=== PATIENT | male | born 1955 | race Caucasian/White ===

== ENCOUNTER → 2021-11-12 | Outpatient (CLI) | payer MEDICARE, OTHER ==
[2021-11-12 10:51] LABS: Partial Thromboplastin Time 24.5 sec (22.0-30.0); Prothrombin Time 10.5 sec (9.0-12.0)
[2021-11-12 18:52] LABS: HCT 42.5 % (39.6-50.0); HGB 13.3 g/dL (13.0-17.0); MCHC 31.3 g/dL (32.0-37.0); MCV 92.6 fL (80.0-97.0); Mean Platelet Volume 9.6 fL (9.5-12.2); NRBC Per 100 WBC 0 /100 WBCS (0.0-0.0); Platelet Count 273 X 10*3/uL (140-440); RBC 4.59 X 10*6/uL (4.40-5.60); WBC 7.07 X 10*3/uL (4.50-10.00)
[2021-11-13 00:30] LABS: ALT 21 U/L (10-49); AST 20 U/L (14-35); African American GFR (CKD) 105.8 (60.0-200.0); Albumin 4.3 g/dL (3.8-4.9); Albumin/Globulin Ratio 1.66 (1.60-3.17); Alkaline Phosphatase 81 U/L (41-126); Blood Urea Nitrogen 17.3 mg/dL (9.0-27.0); Calcium 9.4 mg/dL (8.7-10.3); Carbon Dioxide 24.7 mmol/L (20.0-27.5); Chloride 105 mmol/L (96-109); Chol/HDL Ratio 2.52 Ratio; Globulin 2.6 g/dL (1.6-3.3); Glucose 114 mg/dL (70-110); LDL Cholesterol,Calculated 46.8 mg/dL (0.0-131.0); Non-African American GFR(CKD) 91.2 (60.0-200.0); Potassium 4.5 mmol/L (3.5-5.5); Sodium 141 mmol/L (135-145); Total Protein 6.8 g/dL (6.2-8.2); VLDL Calculation 17.74 mg/dL (5.00-40.00)
[2021-11-13 13:31] LABS: Hepatitis A Antibody IgM Nonreactive (Nonreactive); Hepatitis B Core IgM Nonreactive (Nonreactive); Hepatitis B Surface Antigen Nonreactive (Nonreactive); Hepatitis C IgG Antibody Nonreactive (Nonreactive)
== END | disposition home or self-care (01) ==
LOC: LABWHC1 09:24
PROVIDERS: ATTEND Thoracic Surgery (Cardiothoracic Vascular Surgery)
DX: I25.10 Atherosclerotic heart disease of native coronary artery without angina pectoris (principal)
CPT/HCPCS: 36415; 80053; 80061; 80074; 85027; 85610; 85730; 93005

== ENCOUNTER 2021-11-18 05:38 | Inpatient (IN) | payer MEDICARE, OTHER ==
--- NOTE | 2021-11-12 10:30 | P.PN ---
Progress Note - Text Progress Note Date: 11/12/21 5 meter walk test completed without difficulty: #1 3.37 seconds #2 2.95 seconds #3 2.78 seconds Also, STS risk was calculated and discussed with the patient and his .
[~2021-11-18 05:38] MED LIST: ALBUMIN HUMAN 25% 50 ML IV ONE; ALBUMIN HUMAN 5% 500 ML IVPB ONE; ASPIRIN 325 MG TAB PO ONE; ATORVASTATIN 10 MG TAB PO ONE; CALCIUM CHLORIDE 100 MG/ML 10 ML SYRINGE IV ONE; CARDIOPLEGIC SOLN (K+ 16 MEQ/L 1,000 ML with SODIUM BICARB (1 MEQ/ML) 20 ML, LIDOCAINE ... PERFUSION ONE; CHLORHEXIDINE GLUCONATE 15 ML CUP MUCOUS MEM ONE; CLEVIDIPINE BUTYRATE 25 MG in EMPTY BAG 1 BAG IV ONE; DILTIAZEM 125 MG in SODIUM CHLORIDE 0.9% 100 ML IV ONE; HEPARIN SODIUM 1,000 UN/ML (10ML VL) IV ONE; HEPARIN SODIUM,PORCINE 5,000 UNIT in SODIUM CHLORIDE 0.9% 500 ML 500 ML IV ONE; INSULIN REGULAR 100 UNIT in SODIUM CHLORIDE 0.9% 100 ML IV ONE; LACTATED RINGERS 1,000 ML IV ONE; MAGNESIUM SULFATE 16.24 MEQ in EMPTY SYRINGE 1 SYR IV ONE; MANNITOL 25% 12.5 GM/50 ML VIAL IV ONE; METOPROLOL TARTRATE 12.5 MG TAB PO ONE; NITROGLYCERIN SL TABS 0.4 MG TAB SUBLINGUAL ONE; NITROGLYCERIN-D5W PMX 25 MG/250 ML BTL IV ONE; NITROGLYCERIN-D5W PMX 50 MG in DEXTROSE/WATER 1 250ML.BAG IV ONE; NOREPINEPHRINE 4 MG in SODIUM CHLORIDE 0.9% 250 ML IV ONE; PAPAVERINE 360 MG in SODIUM CHLORIDE 0.9% 90 ML IV ONE; PHENYLEPHRINE 10 MG/ML VIAL IV ONE; PHENYLEPHRINE 40 MG in SODIUM CHLORIDE 0.9% 250 ML IV ONE; PROTAMINE SULFATE 10 MG/ML 25 ML VIAL IV ONE; PROTAMINE SULFATE 250 MG in EMPTY BAG 1 BAG IV ONE; SODIUM BICARB 8.4% 50 ML SYR (1 MEQ/ML) IV ONE; SODIUM CHLORIDE 0.9% 1,000 ML IV ONE; TRANEXAMIC ACID 2,000 MG in SODIUM CHLORIDE 0.9% 80 ML IV ONE; ceFAZolin 1,000 MG in SODIUM CHLORIDE 0.9% IRRIGATIO 1,000 ML IRRIGATION ONE; propofoL 1,000 MG/100 ML VIAL IV ONE
[2021-11-18] MEDS ORDERED: CALCIUM CHLORIDE 100 MG/ML 10 ML SYRINGE ONE (07:44)
[2021-11-18] MEDS ORDERED: PHENYLEPHRINE-0.9% NACL SYG 1,000 MCG/10 ML SYRINGE ONE (07:44)
[2021-11-18] MEDS ORDERED: SODIUM CHLORIDE 0.9% IRRIG 1,000 ML BTL IRRIGATION ONE (07:44)
[2021-11-18] MEDS ORDERED: HEPARIN SODIUM,PORCINE 10,000 UNIT/ML 1 ML VIAL ONE (07:44)
[2021-11-18] MEDS ORDERED: PROPOFOL 10 MG/ML 20 ML VIAL IV ONE (07:44)
[2021-11-18] MEDS ORDERED: GLYCOPYRROLATE 0.2 MG/ML 2 ML VIAL ONE (07:44)
[2021-11-18] MEDS ORDERED: ceFAZolin 1,000 MG VIAL ONE (07:44)
[2021-11-18] MEDS ORDERED: PROTAMINE SULFATE 10 MG/ML 5 ML VIAL IV ONE (07:44)
[2021-11-18] MEDS ORDERED: ALBUMIN HUMAN 5% (25gm) 500 ML VIAL IVPB ONE (07:44)
[2021-11-18] MEDS ORDERED: MIDAZOLAM HCL 10 MG/10 ML VIAL ONE (07:44)
[2021-11-18] MEDS ORDERED: SODIUM CHLORIDE 0.9% 100 ML BAG ONE (07:44)
[2021-11-18] MEDS ORDERED: VECURONIUM 10 MG VIAL IV ONE (07:44)
[2021-11-18] MEDS ORDERED: fentaNYL (PF) 50 MCG/ML 50 ML VIAL ONE (07:44)
--- NOTE | 2021-11-18 10:13 | P.ANPRN ---
Procedure Note - Anesthesia - Invasive Line Right Central Line Time Out Performed: Yes (714) Date of Procedure: 11/18/21 Time of Procedure: 07:15 Location of Patient: PreOp Preparation: Sterile Prep, Sterile Dressing Arterial Line Location: Radial Ultrasound Used: Yes Purpose - Visualization and Identification of Vasculature: Yes Needle Guage: 18g angio Image Stored and Saved: Yes Narrative: Central line placement per sterile protocol utilized. +local +angio +cvp +jwire +uneventful right IJ cordis dilation and insertion. Bled back and flushed. Secured. Sterile protocol at all times.
--- NOTE | 2021-11-18 10:14 | P.ANPRN ---
Procedure Note - Anesthesia - Invasive Line Right [place] Time Out Performed: Yes (714) Date of Procedure: 11/18/21 Time of Procedure: 07:31 Location of Patient: PreOp Preparation: Sterile Prep, Sterile Dressing Arterial Line Location: Radial Ultrasound Used: No Purpose - Visualization and Identification of Vasculature: No Image Stored and Saved: No Narrative: Central line placement per sterile protocol utilized. sterile protocol. right IJ PA catheter floated in sheath in 3 attempts. PA at 52 wedge at 58. W/d and left at 52 cm. pt tolerated procedure well.
[2021-11-18 13:09] LABS: ABG Base Excess 0.4 mmol/L; ABG Glucose Whole Blood 127 mg/dL (75-99); ABG HCO3 25 mmol/L (21-25); ABG Hematocrit 31 % (34.0-46.0); ABG Ionized Calcium 4.6 mg/dL (4.5-5.3); ABG Lactic Acid Whole Blood 1.5 mmol/L (0.5-1.6); ABG Oxygen Saturation 95.9 % (94-97); ABG PCO2 40 mmHg (35-45); ABG PH 7.41 (7.35-7.45); ABG PO2 76 mmHg (83-108); ABG Potassium Whole Blood 3.6 mmol/L (3.4-4.5); ABG Sodium Whole Blood 141 mmol/L (135-146); ABG TCO2 26 mmol/L (19-24)
--- NOTE | 2021-11-18 13:14 | P.OP ---
Date of Procedure: 11/18/21 Preoperative Diagnosis: Coronary artery disease Postoperative Diagnosis: Same Procedure(s) Performed: Off-pump CABG 3 with RAMIREZ to LAD, free DEBI T graft off RAMIREZ to obtuse marginal #2, saphenous vein graft to PDA with endovascular vein harvest and ligation of the left atrial appendage with a 35 mm AtriCure clip. Also anesthesia performed RYLAND pre-and postoperatively. Implants: 35 mm AtriCure clip Anesthesia: GETA Surgeon: Karthik Vasquez Receiving Checker #1: Anthony Licona Receiving Checker #2: En Briscoe Estimated Blood Loss (ml): 500 IV fluids (ml): 2,000 Urine output (ml): 500 Pathology: none sent Condition: stable Disposition: ICU Indications for Procedure: 66-year-old male with known history of coronary artery disease and multiple stents and past. Patient presented with anginal symptomatology. And when cardiac catheterization by Dr. Karthik Nuñez. He was found to have severe three- vessel coronary artery disease with in-stent restenosis of the proximal LAD stent. Coronary bypass grafting was recommended. As the patient lived in [facility], was decided to perform his surgery at [facility] despite his catheterization having been done and essentially [facility]. Elective surgery was scheduled. Operative Findings: LAD, OM 2, PDA were excellent targets. Diagonal branches and high obtuse marginal and distal circumflex branches were all small. There were to acute marginal branches which were also small. Radial arteries were dependent and could not be harvested safely. Bilateral mammary artery harvest was performed and the conduits were excellent. The DEBI was taken free in order to give adequate length to reach the lateral wall. RAMIREZ was used pedicle. Saphenous vein from the left thigh was excellent. RYLAND demonstrated only trivial mitral regurgitation with normal ventricular function. There was no evidence of clot in the ventricle or left atrial appendage. Description of Procedure: Patient was brought to the operating room. He was placed supine on the operating table. Gen. anesthesia was induced. Preoperative lines had been placed in preop holding. The anterior torso and lower extremities were sterilely prepped and draped. The left greater saphenous vein was harvested from knee to groin using endovascular vein harvest technique. Simultaneous midline sternotomy was performed. The left hemisternum was retracted upwards and the left internal mammary artery was harvested on a vascularized pedicle. It was an excellent conduit. The left pleural space was drained with 32-Luxembourger chest tube. The right internal mammary artery was now harvested on a vascularized pedicle. It was also a good conduit. It was divided proximally and distally and the ends of the vessel clipped. The vessel was flushed with heparinized saline and placed in a papaverine bath. Standard sternal retractor was placed. The pericardium was opened in the midline. The heart was exposed pericardial sutures. Patient was systemically heparinized. A CTs were maintained greater than 250 during grafting. We began by jumping the free DEBI off the pedicles RAMIREZ. Bulldog clamps were applied proximally and distally on the RAMIREZ. It was opened longitudinally. Was opened in its midportion just as it entered the pericardial sac. Proximal anastomosis was performed with running 8-0 Prolene suture. Was performed from the side of the RAMIREZ to the proximal end of the DEBI. On completion anastomosis bulldog clamps removed distally. Good flow was noted in each graft. 35mm AtriCure was now applied to the base of the left atrial appendage. Next the mid LAD was stabilized. The stents could be palpated proximally. Vessel was grafted just distal to the end of the stents. Here was a 2-2.5 mm good vessel. It was opened and blood flow control with a 2 mm flow through. End to side anastomosis between the RAMIREZ and the LAD was performed with running 8-0 Prolene suture. Completion anastomosis the flow through was removed effectively probing the proximal distal portion of the anastomosis. Suture was tied with good result and hemostasis inflow was open. Graft was noted to lay well with good length. The ANASTASIA pedicle was tacked surrounding epicardium with 6-0 silk suture. Lateral wall of the heart was exposed. The major marginal branch was the second obtuse marginal. It was a good size vessel. It was opened fairly proximally and blood flow control with a 2 mm flow through. It was a 2 mm vessel. End-to-side anastomosis between the end of the DEBI and the side of the major marginal branch was performed with running 8-0 Prolene suture. On completion anastomosis flow through was removed effectively probing the proximal distal portion anastomosis. Suture was tied with good result and hemostasis. Inflow was open. Good hemostasis was maintained. The ANASTASIA pedicle was tacked surrounding epicardium with 6-0 silk. The heart was lowered into anatomic position and the inferior wall was exposed. Right coronary artery had 2 obtuse marginal branches one of which ran along the anterior surface and the second of which across the obtuse margin and ran along the posterior surface of the right ventricle. Right coronary artery terminated and a large posterior descending branch. This was stabilized. Was opened and blood flow control with a 1.5 mm flow through. It was a 1.75 mm vessel. Was grafted beyond any palpable disease. This was fairly proximally in the PDA. Anastomosis between the saphenous vein and the PDA was performed with running 7-0 Prolene suture. On completion anastomosis the flow through was removed 50 probe the proximal distal portion anastomosis. Suture was tied with good result and hemostasis and good backbleeding was noted into the vein to the first valve. Heart was lowered into anatomic position. The vein was cut to appropriately to reach the ascending aorta. This was just at the level of the first valve. Heartstring device was deployed in the midportion of the ascending aorta. Proximal anastomosis performed with running 5-0 Prolene suture. On completion of the proximal anastomosis heartstring device was removed. Single suture was tied with good result and hemostasis. The graft was de-aired by needle holes and the inflow open. Graft was noted to lay well with good length. Distal anastomoses were checked and 80 noted to be hemostatic. Heparin was reversed with protamine. Good hemostasis was obtained throughout. Chest was irrigated with antibiotic solution. Both pleural spaces of been drained with 32-Luxembourger chest tubes and a 36-Luxembourger chest tube was placed into the mediastinum. Pericardium was tacked closed. Chest was irrigated with antibiotic solution and the sternum closed with 8 sternal wires. Fascia was closed with 0 Ethibond. Subcutaneous and subcuticular layers in the leg and chest were closed with layers of Vicryl suture. Dry sterile dressings were placed and the patient was transferred to the ICU in stable condition.
[2021-11-18] MEDS ORDERED: ALBUMIN HUMAN 5% 250 ML IVPB ONE (13:19)
[2021-11-18] MEDS ORDERED: NITROGLYCERIN-D5W PMX 50 MG in DEXTROSE/WATER 1 250ML.BAG IV SCH (13:20)
[2021-11-18] MEDS ORDERED: Phosphorus Replacement Protoco 1 EACH MISC MISCELLANE PRN (13:20)
[2021-11-18] MEDS ORDERED: IPRATROPIUM-ALBUTEROL 3 ML NEB INHALATION PRN (13:20)
[2021-11-18] MEDS ORDERED: BENZOCAINE/MENTHOL LOZENG 1 EACH LOZENGE MUCOUS MEM PRN (13:20)
[2021-11-18] MEDS ORDERED: hydrALAZINE HCL 20 MG/ML 1 ML VIAL IVP PRN (13:20)
[2021-11-18] MEDS ORDERED: ONDANSETRON 4 MG/2 ML VIAL IVP PRN (13:20)
[2021-11-18] MEDS ORDERED: AMIODARONE 450 MG in DEXTROSE 5% IN WATER 250 ML IV PRN ×2 (13:20)
[2021-11-18] MEDS ORDERED: Magnesium Replacement Protocol 1 EACH MISC MISCELLANE PRN (13:20)
[2021-11-18] MEDS ORDERED: CALCIUM GLUCONATE IN NACL 2 GM in SALINE 1 100ML.BAG IVPB PRN (13:20)
[2021-11-18] MEDS ORDERED: Potassium Replacement Protocol 1 EACH MISC MISCELLANE PRN (13:20)
[2021-11-18] MEDS ORDERED: DEXTROSE 5% IN WATER 100 ML with AMIODARONE 150 MG IV PRN (13:20)
[2021-11-18] MEDS ORDERED: DEXMEDETOMIDINE/0.9% NACL(PMX) 400 MCG in EMPTY BAG 1 BAG IV SCH (13:20)
[2021-11-18] MEDS ORDERED: METOCLOPRAMIDE 5 MG/ML 2 ML VIAL IVP PRN (13:20)
[2021-11-18 13:31] LABS: Glucose,Whole Blood 139 mg/dL (75-99)
[2021-11-18 13:40] LABS: Basophils % (A) 0 %; Eosinophils # (A) 0.2 k/uL (0-0.7); Eosinophils % (A) 2 %; HCT 30.4 % (39.0-53.0); HGB 10.4 gm/dL (13.0-17.5); Lymphocytes # (A) 1.1 k/uL (1.0-4.8); Lymphocytes % (A) 12 %; MCHC 34.3 g/dL (31.0-37.0); MCV 90.5 fL (80.0-100.0); Mean Platelet Volume 7.8; Monocytes # (A) 0.2 k/uL (0-1.0); Monocytes % (A) 2 %; Neutrophils # (A) 7.9 k/uL (1.3-7.7); Neutrophils % (A) 83 %; Platelet Count 169 k/uL (150-450); RBC 3.36 m/uL (4.30-5.90); RDW 13.2 % (11.5-15.5); WBC 9.5 k/uL (3.8-10.6)
[2021-11-18 13:48] LABS: Ionized Calcium 5.5 mg/dL (4.5-5.3)
--- NOTE | 2021-11-18 13:57 | XR ---
EXAMINATION TYPE: XR chest 1V portable DATE OF EXAM: 11/18/2021 CLINICAL HISTORY: Postoperative CABG. TECHNIQUE: Single AP portable supine view of the chest is obtained. COMPARISON: None FINDINGS: There is Endotracheal tube terminating at superior aortic knob level approximately 4 cm ab ove the charles. There is orogastric tube extending just below diaphragm. There is right internal jugu lar [place] catheter terminating at level of the proximal right pulmonary artery. Overlying sternal wires and mediastinal clips along with left atrial appendage clip are present. Bilateral chest tubes and mediastinal drainage catheter are present. Patchy left basilar opacity consistent with atelectasis. Mild interstitial prominence or edema. No pn eumothorax seen bilaterally. Mild cardiomegaly. Osseous structures are intact. IMPRESSION: 1. Tubes and lines are satisfactory in position. 2. Mild central vascular congestion with patchy left basilar atelectasis and probable small left pleu ral fluid collection. No pneumothorax with bilateral chest tubes in place.
[2021-11-18] MEDS ORDERED: INSULIN REGULAR 100 UNIT in SODIUM CHLORIDE 0.9% 100 ML IV SCH (14:00)
[2021-11-18] MEDS: LACTATED RINGERS 1,000 ML IV SCH (14:11)
[2021-11-18 14:17] LABS: ALT 22 U/L (4-49); AST 25 U/L (17-59); African American GFR (CKD) >90 (>60 ml/min/1.73 sqM); Albumin 3.4 g/dL (3.5-5.0); Alkaline Phosphatase 55 U/L (38-126); Anion Gap 3 mmol/L; Blood Urea Nitrogen 16 mg/dL (9-20); Calcium 8.8 mg/dL (8.4-10.2); Carbon Dioxide 25 mmol/L (22-30); Chloride 109 mmol/L (98-107); Glucose 130 mg/dL (74-99); Magnesium 1.5 mg/dL (1.6-2.3); Non-African American GFR(CKD) >90 (>60 ml/min/1.73 sqM); Sodium 137 mmol/L (137-145); Total Bilirubin 0.9 mg/dL (0.2-1.3); Total Protein 5.6 g/dL (6.3-8.2)
[2021-11-18] MEDS: CLEVIDIPINE BUTYRATE 25 MG in EMPTY BAG 1 BAG IV SCH ×2 (14:33→20:01)
[2021-11-18 14:34] LABS: INR 1.1 (<1.2); Partial Thromboplastin Time 25.5 sec (22.0-30.0); Prothrombin Time 11.8 sec (9.0-12.0)
[2021-11-18] MEDS: MAGNESIUM SULFATE-D5W PMX 1 GM in DEXTROSE/WATER 1 100ML.BAG IVPB SCH ×2 (14:43→16:13)
--- NOTE | 2021-11-18 14:47 | P.CNPUL ---
History of Present Illness Consult date: 11/18/21 Requesting physician: Karthik Vasquez Reason for consult: other (Status post CABG, patient is on mechanical ventilation) Chief complaint: Status post CABG History of present illness: This is a 66-year-old white male with history of coronary artery disease, multiple stents in the past, patient had a recent cardiac catheterization, this was done by Dr. Karthik Nuñez, and he was found to have three-vessel coronary artery disease, with in-stent restenosis of the proximal LAD stent. Patient was advi sed to undergo CABG, considering the patient lives in [facility], he was referred to Dr. Vasquez, and today he underwent elective off-pump CABG 3 with RAMIREZ to LAD free DEBI T graft off RAMIREZ to obtuse marginal #2, saphenous vein graft to PDA. Postoperatively patient was admitted to the ICU on mechanical ventilation, and I was asked to see him on consultation. Patient is now on assist control mode of mechanical ventilation, rate is set at 12 tidal volume is 500 FiO2 was 100% and I cut it down to 40%, and PEEP at 5. ABG showed a pO2 of more than 400 pCO2 of 49 pH of 7.34 hence his rate was increased to 14 FiO2 down to 40% and no other changes made on his ventilator settings. Patient is sedated, on clevidipine 2 mg/h, on propofol 35 mcg/kg/m on insulin drip at 1 unit per hour nitroglycerin drip. Patient is hemodynamically stable his cardiac index is 3.4. Chest x-ray showed no evidence of acute abnormality endotracheal tube, chest tubes, mediastinal tube are all in proper position. Review of Systems ROS unobtainable: due to endotracheal tube Past Medical History Past Medical History: GERD/Reflux, Hyperlipidemia, Hypertension Additional Past Medical History / Comment(s): RLS, ?sleep apnea-attempted home sleep study History of Any Multi-Drug Resistant Organisms: None Reported Past Surgical History: Heart Catheterization, Heart Catheterization With Stent Additional Past Surgical History / Comment(s): 5 stents total, colonoscopy Past Anesthesia/Blood Transfusion Reactions: No Reported Reaction Date of Last Stent Placement:: 2014 Smoking Status: Former smoker - Past Family History Mother Family Medical History: No Reported History Medications and Allergies Home Medications Medication Instructions Recorded Confirmed Type Aspirin 81 mg PO DAILY 11/12/21 11/18/21 History Clopidogrel [Plavix] 75 mg PO DAILY 11/12/21 11/18/21 History Isosorbide Mononitrate ER [Imdur] 30 mg PO DAILY 11/12/21 11/18/21 History Omeprazole [PriLOSEC] 20 mg PO AC-BRKFST 11/12/21 11/18/21 History Pramipexole Di-HCl [Mirapex] 1 mg PO HS 11/12/21 11/18/21 History Rosuvastatin Calcium [Crestor] 40 mg PO HS 11/12/21 11/18/21 History Ubidecarenone [Co Q-10] 100 mg PO HS 11/12/21 11/18/21 History atenoloL [Tenormin] 50 mg PO DAILY 11/12/21 11/18/21 History Allergies Allergy/AdvReac Type Severity Reaction Status Date / Time No Known Allergies Allergy Verified 11/18/21 06:00 Physical Exam Vitals: Vital Signs Temp Pulse Resp BP BP Pulse Ox 11/18/21 06:08 125/74 11/18/21 06:05 97.5 F L 57 L 18 119/68 96 Intake and Output 11/17/21 11/18/21 11/18/21 22:59 06:59 14:59 Intake Total 100 53 Output Total 1175 Balance 100 -1122 Intake: IV 100 53 Output: Urine 575 Estimated Blood Loss 600 Other: Weight 86.1 kg Physical Exam: Revealed a 66-year-old white male intubated mechanically ventilated in no distress. Head: Atraumatic, normocephalic. HEENT:[Neck is supple.] [No neck masses.] [No thyromegaly.] [No JVD.] PERRLA, EOMI, nonicteric, endotracheal tube is intact. Chest: [Symmetrical chest expansion, no crackles or rhonchi or wheezes, chest tubes are noted bilaterally Cardiac Exam: [Normal S1 and S2, no S3 gallop, no murmur. Positive pericardial rub.] Abdomen: [Soft, nontender, no megaly, no rebound, no guarding, normal bowel sounds.] Extremities: [No clubbing, no edema, no cyanosis. Good pulses bilaterally.] Neurological Exam: Cannot assess, patient is sedated, Psychiatric: Could not assess. Musculoskeletal good tone, no deformities. Skin: No rashes. Results - Laboratory Findings CBC and BMP: 11/18/21 13:30 11/18/21 13:30 ABG ABG pH 7.41 (7.35-7.45) 11/18/21 08:31 ABG pCO2 40 mmHg (35-45) 11/18/21 08:31 ABG pO2 76 mmHg (83-108) L 11/18/21 08:31 ABG O2 Saturation 95.9 % (94-97) 11/18/21 08:31 Abnormal lab findings: Abnormal Labs 11/12/21 11/18/21 11/18/21 09:44 08:31 13:29 RBC Hgb Hct Neutrophils # ABG pO2 76 L ABG Total CO2 26 H ABG Hematocrit 31 L ABG Glucose 127 H Hemoglobin 10.0 L Chloride Creatinine Glucose POC Glucose (mg/dL) 139 H Ionized Calcium Marshall Magnesium Total Protein Albumin Arterial Blood Glucose 127 H Crossmatch See Detail 11/18/21 11/18/21 13:30 13:30 RBC 3.36 L Hgb 10.4 L Hct 30.4 L Neutrophils # 7.9 H ABG pO2 ABG Total CO2 ABG Hematocrit ABG Glucose Hemoglobin Chloride 109 H Creatinine 0.63 L Glucose 130 H POC Glucose (mg/dL) Ionized Calcium Marshall 5.5 H Magnesium 1.5 L Total Protein 5.6 L Albumin 3.4 L Arterial Blood Glucose Crossmatch - Diagnostic Findings Chest x-ray: image reviewed (As noted in HPI.) Assessment and Plan Assessment: Impression: Off-pump CABG 3 with RAMIREZ to LAD, free DEBI T graft off RAMIREZ to obtuse marginal #2, saphenous vein graft to PDA with endovascular vein harvest and ligation of the left atrial appendage with a 35 mm AtriCure clip. Postoperative day #0 Benign essential hypertension Dyslipidemia Ex-smoker Recommendation: Continue present ventilatory support Ventilator settings were adjusted accordingly Hemodynamic support if necessary. GI and DVT prophylaxis. Will likely consider weaning and extubation in the next couple of hours. Incentive spirometry post extubation. Early ambulation post extubation. We'll continue to follow. Time with Patient: Greater than 30
[2021-11-18 15:18] LABS: Glucose,Whole Blood 159 mg/dL (75-99)
--- NOTE | 2021-11-18 15:33 | P.CONS ---
History of Present Illness - Reason for Consult Consult date: 11/18/21 pre-diabetes Requesting physician: Karthik Vasquez - Chief Complaint chest pain - History of Present Illness Patient is a 66-year-old male with coronary artery disease status post multiple stenting, GERD, HTN, and HLD who presented for elective off-pump CABG 3. He was admitted to the ICU intubated and sedated. Patient seen and examined at bedside. He is currently intubated and sedated. All information is gathered from thorough record review including preoperative evaluation for bypass surgery. Patient is currently on vent setting . He curretnly has propofol, nitro, clevidipine running. Unable to obtain review of systems as patient is sedated on vent General: non toxic, no distress, appears at stated age Derm: warm, dry Head: atraumatic, normocephalic, symmetric Eyes: EOMI, no lid lag, anicteric sclera, pupils equal round reactive to light ENT: Nose and ears atraumatic, no thrush, no pharyngeal erythema Neck: No thyromegaly, no cervical lymphadenopathy, trachea midline, supple Mouth: no lip lesion, mucus membranes moist Cardiovascular: S1S2 irreg, no murmur, + posterior tibial pulse bilateral, no edema, capillary refill less than 2 seconds Lungs: Decreased bs bilateral, no ronchi, no rales, no wheeze, no accessory muscle use Abdominal: soft, nontender to palpation, no guarding, no appreciable organomegaly, normal bowel sounds Ext: no gross muscle atrophy, no contracttures Neuro: Breathing over the vent, PERRL, no tremors, no fasiculations Psych: sedated and unresponsive Assessment/plan. Patient is a 66-year-old male status post triple vessel bypass therapy -He is currently receiving clefted pain, LR, nitro drip per primary team -He is intubated and sedated with the use of propofol. Acute blood loss anemia -Anticipated outcome of surgery -No indications for transfusion at this time -Follow CBC -Check iron studies Prediabetes - Outpatient A1C pre op was 6 - will need glucometer on discharge - will need repeat A1C in 3 months. Hypomagnesemia -Replace and recheck Hypertension -Management per primary team -Follow blood pressures closely -Was on atenolol prior to surgery Dyslipidemia - Crestor Thank you for allowing us to participate in the care of this pleasant patient. Do not hesitate to contact us with questions. Someone can be reached from the [facility] hospitalist group all hours of the day at [phone] or via [employer]. Past Medical History Past Medical History: GERD/Reflux, Hyperlipidemia, Hypertension Additional Past Medical History / Comment(s): RLS, ?sleep apnea-attempted home sleep study History of Any Multi-Drug Resistant Organisms: None Reported Past Surgical History: Heart Catheterization, Heart Catheterization With Stent Additional Past Surgical History / Comment(s): 5 stents total, colonoscopy Past Anesthesia/Blood Transfusion Reactions: No Reported Reaction Date of Last Stent Placement:: 2014 Smoking Status: Former smoker - Past Family History Mother Family Medical History: No Reported History Medications and Allergies Home Medications Medication Instructions Recorded Confirmed Type Aspirin 81 mg PO DAILY 11/12/21 11/18/21 History Clopidogrel [Plavix] 75 mg PO DAILY 11/12/21 11/18/21 History Isosorbide Mononitrate ER [Imdur] 30 mg PO DAILY 11/12/21 11/18/21 History Omeprazole [PriLOSEC] 20 mg PO AC-BRKFST 11/12/21 11/18/21 History Pramipexole Di-HCl [Mirapex] 1 mg PO HS 11/12/21 11/18/21 History Rosuvastatin Calcium [Crestor] 40 mg PO HS 11/12/21 11/18/21 History Ubidecarenone [Co Q-10] 100 mg PO HS 11/12/21 11/18/21 History atenoloL [Tenormin] 50 mg PO DAILY 11/12/21 11/18/21 History Allergies Allergy/AdvReac Type Severity Reaction Status Date / Time No Known Allergies Allergy Verified 11/18/21 06:00 Physical Exam Osteopathic Statement: *. No significant issues noted on an osteopathic structural exam other than those noted in the History and Physical/Consult. Vitals: Vital Signs Temp Pulse Resp BP BP Pulse Ox 11/18/21 06:08 125/74 11/18/21 06:05 97.5 F L 57 L 18 119/68 96 Intake and Output 11/18/21 11/18/21 11/18/21 06:59 14:59 22:59 Intake Total 100 53 Output Total 1175 Balance 100 -1122 Intake: IV 100 53 Output: Urine 575 Estimated Blood Loss 600 Other: Weight 86.1 kg Results CBC & Chem 7: 11/18/21 13:30 11/18/21 13:30 Labs: Abnormal Lab Results - Last 24 Hours (Table) 11/12/21 11/18/21 11/18/21 Range/Units 09:44 08:31 13:29 RBC (4.30-5.90) m/uL Hgb (13.0-17.5) gm/dL Hct (39.0-53.0) % Neutrophils # (1.3-7.7) k/uL ABG pO2 76 L (83-108) mmHg ABG Total CO2 26 H (19-24) mmol/L ABG Hematocrit 31 L (34.0-46.0) % ABG Glucose 127 H (75-99) mg/dL Hemoglobin 10.0 L (13.0-17.5) gm/dL Chloride (98-107) mmol/L Creatinine (0.66-1.25) mg/dL Glucose (74-99) mg/dL POC Glucose (mg/dL) 139 H (75-99) mg/dL Ionized Calcium Marshall (4.5-5.3) mg/dL Magnesium (1.6-2.3) mg/dL Total Protein (6.3-8.2) g/dL Albumin (3.5-5.0) g/dL Arterial Blood Glucose 127 H (75-99) mg/dL Crossmatch See Detail 11/18/21 11/18/21 11/18/21 Range/Units 13:30 13:30 15:17 RBC 3.36 L (4.30-5.90) m/uL Hgb 10.4 L (13.0-17.5) gm/dL Hct 30.4 L (39.0-53.0) % Neutrophils # 7.9 H (1.3-7.7) k/uL ABG pO2 (83-108) mmHg ABG Total CO2 (19-24) mmol/L ABG Hematocrit (34.0-46.0) % ABG Glucose (75-99) mg/dL Hemoglobin (13.0-17.5) gm/dL Chloride 109 H (98-107) mmol/L Creatinine 0.63 L (0.66-1.25) mg/dL Glucose 130 H (74-99) mg/dL POC Glucose (mg/dL) 159 H (75-99) mg/dL Ionized Calcium Marshall 5.5 H (4.5-5.3) mg/dL Magnesium 1.5 L (1.6-2.3) mg/dL Total Protein 5.6 L (6.3-8.2) g/dL Albumin 3.4 L (3.5-5.0) g/dL Arterial Blood Glucose (75-99) mg/dL Crossmatch
[2021-11-18] MEDS ORDERED: IPRATROPIUM-ALBUTEROL 3 ML NEB INHALATION SCH (16:00)
[2021-11-18] MEDS: HEPARIN SODIUM,PORCINE/PF 5,000 UNIT/0.5 ML SYRINGE SQ SCH ×2 (16:13→22:55)
[2021-11-18 16:21] LABS: Glucose,Whole Blood 174 mg/dL (75-99)
[2021-11-18 16:28] LABS: Basophils # (A) 0.1 k/uL (0-0.2); Basophils % (A) 0 %; Eosinophils % (A) 0 %; HCT 33.4 % (39.0-53.0); HGB 11.3 gm/dL (13.0-17.5); Lymphocytes # (A) 1.4 k/uL (1.0-4.8); Lymphocytes % (A) 12 %; MCH 30.7 pg (25.0-35.0); MCHC 33.9 g/dL (31.0-37.0); MCV 90.4 fL (80.0-100.0); Monocytes # (A) 0.4 k/uL (0-1.0); Monocytes % (A) 3 %; Neutrophils # (A) 9.5 k/uL (1.3-7.7); Neutrophils % (A) 82 %; Platelet Count 208 k/uL (150-450); RDW 13.1 % (11.5-15.5); WBC 11.5 k/uL (3.8-10.6)
[2021-11-18 16:50] LABS: ABG Base Excess -1.2 mmol/L; ABG HCO3 24 mmol/L (21-25); ABG Oxygen Saturation 97.3 % (94-97); ABG PCO2 43 mmHg (35-45); ABG PH 7.36 (7.35-7.45); ABG PO2 91 mmHg (83-108); ABG TCO2 26 mmol/L (19-24)
[2021-11-18 16:52] LABS: Allen Test Performed? yes
[2021-11-18] MEDS: ACETAMINOPHEN IV (For NPO) 1,000 MG in EMPTY BAG 1 BAG IVPB SCH ×2 (17:02→22:56)
[2021-11-18] MEDS: KETOROLAC 15 MG/ML 1 ML VIAL IVP SCH ×2 (17:05→23:04)
[2021-11-18 17:09] LABS: Glucose,Whole Blood 182 mg/dL (75-99)
[2021-11-18 18:05] LABS: Glucose,Whole Blood 157 mg/dL (75-99)
[2021-11-18 19:04] LABS: Glucose,Whole Blood 120 mg/dL (75-99)
[2021-11-18] MEDS: IPRATROPIUM-ALBUTEROL 3 ML NEB INHALATION SCH (19:08)
[2021-11-18 20:04] LABS: Glucose,Whole Blood 122 mg/dL (75-99)
[2021-11-18] MEDS: PRAMIPEXOLE 1 MG TAB PO SCH (20:10)
[2021-11-18 20:12] LABS: Basophils % (A) 0 %; Eosinophils % (A) 0 %; HCT 34.3 % (39.0-53.0); HGB 11.9 gm/dL (13.0-17.5); Lymphocytes # (A) 0.7 k/uL (1.0-4.8); Lymphocytes % (A) 6 %; MCH 31.7 pg (25.0-35.0); MCHC 34.8 g/dL (31.0-37.0); MCV 91.3 fL (80.0-100.0); Mean Platelet Volume 7.6; Monocytes # (A) 0.4 k/uL (0-1.0); Monocytes % (A) 3 %; Neutrophils # (A) 10.6 k/uL (1.3-7.7); Neutrophils % (A) 90 %; Platelet Count 172 k/uL (150-450); RBC 3.75 m/uL (4.30-5.90); RDW 12.4 % (11.5-15.5); WBC 11.8 k/uL (3.8-10.6)
[2021-11-18] MEDS ORDERED: MUPIROCIN 2% OINT 22 GM TUBE NASAL ONE (20:45)
[2021-11-18] MEDS: METOPROLOL TARTRATE 25 MG TAB PO SCH (21:19)
[2021-11-18 21:24] LABS: Glucose,Whole Blood 116 mg/dL (75-99)
[2021-11-18 22:18] LABS: Glucose,Whole Blood 108 mg/dL (75-99)
[2021-11-18 23:16] LABS: Glucose,Whole Blood 125 mg/dL (75-99)
[2021-11-18] MEDS: HYDROcodone/APAP 5-325MG 1 EACH TAB PO PRN (23:30)
[2021-11-19 00:07] LABS: Glucose,Whole Blood 129 mg/dL (75-99)
[2021-11-19] MEDS ORDERED: HYDROcodone/APAP 5-325MG 1 EACH TAB PO PRN (00:46)
[2021-11-19 00:59] LABS: Glucose,Whole Blood 116 mg/dL (75-99)
[2021-11-19 02:06] LABS: Glucose,Whole Blood 101 mg/dL (75-99)
[2021-11-19 03:04] LABS: Glucose,Whole Blood 120 mg/dL (75-99)
[2021-11-19 04:04] LABS: Glucose,Whole Blood 113 mg/dL (75-99)
[2021-11-19 04:21] LABS: Basophils % (A) 0 %; Eosinophils % (A) 0 %; HCT 34.6 % (39.0-53.0); HGB 11.2 gm/dL (13.0-17.5); Lymphocytes # (A) 1.4 k/uL (1.0-4.8); Lymphocytes % (A) 14 %; MCH 29.8 pg (25.0-35.0); MCHC 32.5 g/dL (31.0-37.0); MCV 91.7 fL (80.0-100.0); Mean Platelet Volume 7.7; Monocytes # (A) 0.3 k/uL (0-1.0); Monocytes % (A) 3 %; Neutrophils # (A) 8.1 k/uL (1.3-7.7); Neutrophils % (A) 82 %; Platelet Count 178 k/uL (150-450); RBC 3.77 m/uL (4.30-5.90); RDW 12.8 % (11.5-15.5); WBC 9.8 k/uL (3.8-10.6)
[2021-11-19 04:27] LABS: Ionized Calcium 5.1 mg/dL (4.5-5.3)
[2021-11-19 04:34] LABS: ALT 19 U/L (4-49); AST 31 U/L (17-59); African American GFR (CKD) >90 (>60 ml/min/1.73 sqM); Albumin 3.4 g/dL (3.5-5.0); Alkaline Phosphatase 47 U/L (38-126); Anion Gap 8 mmol/L; Blood Urea Nitrogen 15 mg/dL (9-20); Calcium 8.3 mg/dL (8.4-10.2); Carbon Dioxide 24 mmol/L (22-30); Chloride 105 mmol/L (98-107); Glucose 107 mg/dL (74-99); Magnesium 1.9 mg/dL (1.6-2.3); Non-African American GFR(CKD) >90 (>60 ml/min/1.73 sqM); Potassium 4.1 mmol/L (3.5-5.1); Sodium 137 mmol/L (137-145); Total Bilirubin 0.9 mg/dL (0.2-1.3); Total Protein 5.5 g/dL (6.3-8.2)
[2021-11-19 04:59] LABS: Glucose,Whole Blood 118 mg/dL (75-99)
[2021-11-19] MEDS: MAGNESIUM SULFATE-D5W PMX 1 GM in DEXTROSE/WATER 1 100ML.BAG IVPB SCH ×2 (05:04→06:21)
[2021-11-19] MEDS: HYDROcodone/APAP 5-325MG 1 EACH TAB PO PRN ×2 (05:05→11:28)
[2021-11-19 06:10] LABS: Glucose,Whole Blood 141 mg/dL (75-99)
[2021-11-19] MEDS: KETOROLAC 15 MG/ML 1 ML VIAL IVP SCH ×4 (06:21→23:16)
[2021-11-19 06:57] LABS: Glucose,Whole Blood 136 mg/dL (75-99)
[2021-11-19] MEDS: ALBUMIN HUMAN 5% 250 ML in EMPTY BAG 1 BAG IVPB PRN (06:59)
[2021-11-19] MEDS ORDERED: ACETAMINOPHEN TAB 325 MG TAB PO PRN (07:38)
--- NOTE | 2021-11-19 07:38 | P.PN ---
Subjective Progress Note Date: 11/19/21 Principal diagnosis: Coronary artery disease. Previous medical history of coronary artery disease with unstable angina and previous PCI, hypertension, hyperlipidemia, peripheral arterial disease, previous tobacco dependence, GERD, prediabetes. Patient is vaccinated against covid POD #1 off-pump coronary artery bypass graft 3 with left internal mammary artery to the left anterior descending artery, free right internal mammary artery T graft off the left internal mammary artery to the obtuse marginal #2, reverse greater saphenous vein graft to the posterior descending artery with endovascular vein harvest and ligation of the left atrial appendage with a 35 mm AtriCure clip, intraoperative transesophageal echocardiogram pre-and postoperatively performed by anesthesia Postoperative acute blood loss anemia, expected given hemodilution The patient was seen and examined this morning sitting up in a recliner in the intensive care unit in no acute distress. He was successfully extubated last night at 16:59. He does complain of post surgical pain, denies shortness of breath. Remains in sinus rhythm and hemodynamically stable on no inotropes or pressors. Actively using incentive spirometer and achieving 1000 mL. Right internal jugular [place]/Cordis, right radial arterial line, mediastinal/right/left pleural chest tubes all remain. No new concerns. Objective - Vital Signs Vital signs: Vital Signs Temp 98.1 F 11/18/21 16:00 Pulse 68 11/19/21 07:00 Resp 14 11/19/21 07:00 BP 138/74 11/18/21 19:45 Pulse Ox 95 11/19/21 07:00 Intake & Output 11/18/21 11/19/21 11/19/21 18:59 06:59 18:59 Intake Total 050.001 4689.792 60.5 Output Total 2029 1784 30 Balance -1377.692 -446.208 30.5 Weight 86.3 kg Intake: IV 101 830.0 60.5 LR @ 50ml/hr 550 50 Nitro gtt 15.0 1.5 cardiac output 30 160 pressure bags 18 105 9 Intake, IV Titration 551.308 257.792 Amount ACETAMINOPHEN IV (For NPO 100 ) 1,000 mg In Empty Bag 1 bag @ 400 mls/hr IVPB Q6HR [facility] Rx#:[id number] Clevidipine Butyrate 25 8 37.6 mg In Empty Bag 1 bag @ 1 MG/HR 2 mls/hr IV .Q24H [facility] Rx#:[id number] Insulin Regular 100 unit 10.934 20.192 In Sodium Chloride 0.9% 100 ml @ Per Protocol IV .Q0M [facility] Rx#:[id number] Lactated Ringers 1,000 ml 250 50 @ 30 mls/hr IV .Q24H [facility] Rx#:[id number] Magnesium Sulfate-D5w Pmx 200 1 gm In Dextrose/Water 1 100ml.bag @ 100 mls/hr IVPB Q1H [facility] Rx#: [id number] ceFAZolin 2 gm In Sodium 50 50 Chloride 0.9% 50 ml @ 100 mls/hr IVPB Q8HR [facility] Rx# :[id number] propofoL 1,000 mg In 32.374 Empty Bag 1 bag @ Titrate IV .Q0M [facility] Rx#: [id number] Oral 250 Output: Chest Tube Drainage 385 544 20 left and right pleural 260 435 10 medistinal 125 109 10 Urine 1045 1240 10 Estimated Blood Loss 600 Other: Voiding Method Indwelling Catheter Indwelling Catheter ABP, PAP, CO, CI - Last Documented Arterial Blood Pressure 87/42 Pulmonary Artery Pressure 25/5 Cardiac Output 5.6 Cardiac Index 2.7 - Exam CONSTITUTIONAL: Appears comfortable, cooperative, no acute distress RESPIRATORY: Lungs sounds diminished bilaterally. Respirations even, nonlabored. Currently on 3 L nasal cannula with oxygen saturation 96%. Able to achieve 1000 mL on incentive spirometry. Strong cough. CARDIOVASCULAR: S1, S2 present. Regular rate and rhythm, sinus rhythm on telemetry. Sternum stable. Palpable peripheral pulses bilaterally. No edema present. No calf pain or tenderness noted. Heart hugger in place with patient demonstrating appropriate use. Antiembolism stockings, SCDs present. GASTROINTESTINAL: Abdomen soft, nontender, nondistended. Hypoactive bowel sounds present 4 quadrants. Tolerating clear liquids. Negative flatus GENITOURINARY: Brown present draining clear, yellow urine. Output overnight 25-50 mL per hour INTEGUMENTARY: Skin is warm and dry with evidence of good perfusion. Anterior chest incision well approximated and covered with dry intact dressing. Left lower extremity EVH site well approximated without redness or drainage. NEUROLOGIC: Cranial nerves II through XII intact MUSKULOSKELETAL: Able to move all extremities, strength equal bilaterally PSYCHIATRIC: Alert and oriented to person place and time, appropriate affect, intact judgment and insight INVASIVE LINES AND TUBES: Mediastinal/left/right pleural chest tubes present and connected to wall suction, no air leaks present. Mediastinal tube with 76 mL serosanguineous drainage overnight, 250 mL since surgery. Left/right pleural chest tubes with 355 mL serosanguineous drainage overnight, 800 mL since surge ry. Right internal jugular [place]/Cordis, right radial arterial line present. Last CO/CI 5.6/2.7, PA 32/10, CVP 4. - Allied health notes Allied health notes reviewed: nursing - Labs CBC & Chem 7: 11/19/21 04:00 11/19/21 04:00 Labs: Abnormal Lab Results - Last 24 Hours (Table) 11/12/21 11/18/21 11/18/21 Range/Units 09:44 08:31 13:29 WBC (3.8-10.6) k/uL RBC (4.30-5.90) m/uL Hgb (13.0-17.5) gm/dL Hct (39.0-53.0) % Neutrophils # (1.3-7.7) k/uL Lymphocytes # (1.0-4.8) k/uL ABG pO2 76 L (83-108) mmHg ABG Total CO2 26 H (19-24) mmol/L ABG O2 Saturation (94-97) % ABG Hematocrit 31 L (34.0-46.0) % ABG Glucose 127 H (75-99) mg/dL Hemoglobin 10.0 L (13.0-17.5) gm/dL Chloride (98-107) mmol/L Creatinine (0.66-1.25) mg/dL Glucose (74-99) mg/dL POC Glucose (mg/dL) 139 H (75-99) mg/dL Calcium (8.4-10.2) mg/dL Ionized Calcium Marshall (4.5-5.3) mg/dL Magnesium (1.6-2.3) mg/dL Total Protein (6.3-8.2) g/dL Albumin (3.5-5.0) g/dL Arterial Blood Glucose 127 H (75-99) mg/dL Crossmatch See Detail 11/18/21 11/18/21 11/18/21 Range/Units 13:30 13:30 15:17 WBC (3.8-10.6) k/uL RBC 3.36 L (4.30-5.90) m/uL Hgb 10.4 L (13.0-17.5) gm/dL Hct 30.4 L (39.0-53.0) % Neutrophils # 7.9 H (1.3-7.7) k/uL Lymphocytes # (1.0-4.8) k/uL ABG pO2 (83-108) mmHg ABG Total CO2 (19-24) mmol/L ABG O2 Saturation (94-97) % ABG Hematocrit (34.0-46.0) % ABG Glucose (75-99) mg/dL Hemoglobin (13.0-17.5) gm/dL Chloride 109 H (98-107) mmol/L Creatinine 0.63 L (0.66-1.25) mg/dL Glucose 130 H (74-99) mg/dL POC Glucose (mg/dL) 159 H (75-99) mg/dL Calcium (8.4-10.2) mg/dL Ionized Calcium Marshall 5.5 H (4.5-5.3) mg/dL Magnesium 1.5 L (1.6-2.3) mg/dL Total Protein 5.6 L (6.3-8.2) g/dL Albumin 3.4 L (3.5-5.0) g/dL Arterial Blood Glucose (75-99) mg/dL Crossmatch 11/18/21 11/18/21 11/18/21 Range/Units 16:20 16:20 16:49 WBC 11.5 H (3.8-10.6) k/uL RBC 3.70 L (4.30-5.90) m/uL Hgb 11.3 L (13.0-17.5) gm/dL Hct 33.4 L (39.0-53.0) % Neutrophils # 9.5 H (1.3-7.7) k/uL Lymphocytes # (1.0-4.8) k/uL ABG pO2 (83-108) mmHg ABG Total CO2 26 H (19-24) mmol/L ABG O2 Saturation 97.3 H (94-97) % ABG Hematocrit (34.0-46.0) % ABG Glucose (75-99) mg/dL Hemoglobin (13.0-17.5) gm/dL Chloride (98-107) mmol/L Creatinine (0.66-1.25) mg/dL Glucose (74-99) mg/dL POC Glucose (mg/dL) 174 H (75-99) mg/dL Calcium (8.4-10.2) mg/dL Ionized Calcium Marshall (4.5-5.3) mg/dL Magnesium (1.6-2.3) mg/dL Total Protein (6.3-8.2) g/dL Albumin (3.5-5.0) g/dL Arterial Blood Glucose (75-99) mg/dL Crossmatch 11/18/21 11/18/21 11/18/21 Range/Units 17:07 18:04 19:02 WBC (3.8-10.6) k/uL RBC (4.30-5.90) m/uL Hgb (13.0-17.5) gm/dL Hct (39.0-53.0) % Neutrophils # (1.3-7.7) k/uL Lymphocytes # (1.0-4.8) k/uL ABG pO2 (83-108) mmHg ABG Total CO2 (19-24) mmol/L ABG O2 Saturation (94-97) % ABG Hematocrit (34.0-46.0) % ABG Glucose (75-99) mg/dL Hemoglobin (13.0-17.5) gm/dL Chloride (98-107) mmol/L Creatinine (0.66-1.25) mg/dL Glucose (74-99) mg/dL POC Glucose (mg/dL) 182 H 157 H 120 H (75-99) mg/dL Calcium (8.4-10.2) mg/dL Ionized Calcium Marshall (4.5-5.3) mg/dL Magnesium (1.6-2.3) mg/dL Total Protein (6.3-8.2) g/dL Albumin (3.5-5.0) g/dL Arterial Blood Glucose (75-99) mg/dL Crossmatch 11/18/21 11/18/21 11/18/21 Range/Units 19:59 20:00 21:15 WBC 11.8 H (3.8-10.6) k/uL RBC 3.75 L (4.30-5.90) m/uL Hgb 11.9 L (13.0-17.5) gm/dL Hct 34.3 L (39.0-53.0) % Neutrophils # 10.6 H (1.3-7.7) k/uL Lymphocytes # 0.7 L (1.0-4.8) k/uL ABG pO2 (83-108) mmHg ABG Total CO2 (19-24) mmol/L ABG O2 Saturation (94-97) % ABG Hematocrit (34.0-46.0) % ABG Glucose (75-99) mg/dL Hemoglobin (13.0-17.5) gm/dL Chloride (98-107) mmol/L Creatinine (0.66-1.25) mg/dL Glucose (74-99) mg/dL POC Glucose (mg/dL) 122 H 116 H (75-99) mg/dL Calcium (8.4-10.2) mg/dL Ionized Calcium Marshall (4.5-5.3) mg/dL Magnesium (1.6-2.3) mg/dL Total Protein (6.3-8.2) g/dL Albumin (3.5-5.0) g/dL Arterial Blood Glucose (75-99) mg/dL Crossmatch 11/18/21 11/18/21 11/19/21 Range/Units 22:16 23:14 00:05 WBC (3.8-10.6) k/uL RBC (4.30-5.90) m/uL Hgb (13.0-17.5) gm/dL Hct (39.0-53.0) % Neutrophils # (1.3-7.7) k/uL Lymphocytes # (1.0-4.8) k/uL ABG pO2 (83-108) mmHg ABG Total CO2 (19-24) mmol/L ABG O2 Saturation (94-97) % ABG Hematocrit (34.0-46.0) % ABG Glucose (75-99) mg/dL Hemoglobin (13.0-17.5) gm/dL Chloride (98-107) mmol/L Creatinine (0.66-1.25) mg/dL Glucose (74-99) mg/dL POC Glucose (mg/dL) 108 H 125 H 129 H (75-99) mg/dL Calcium (8.4-10.2) mg/dL Ionized Calcium Marshall (4.5-5.3) mg/dL Magnesium (1.6-2.3) mg/dL Total Protein (6.3-8.2) g/dL Albumin (3.5-5.0) g/dL Arterial Blood Glucose (75-99) mg/dL Crossmatch 11/19/21 11/19/21 11/19/21 Range/Units 00:58 02:02 03:03 WBC (3.8-10.6) k/uL RBC (4.30-5.90) m/uL Hgb (13.0-17.5) gm/dL Hct (39.0-53.0) % Neutrophils # (1.3-7.7) k/uL Lymphocytes # (1.0-4.8) k/uL ABG pO2 (83-108) mmHg ABG Total CO2 (19-24) mmol/L ABG O2 Saturation (94-97) % ABG Hematocrit (34.0-46.0) % ABG Glucose (75-99) mg/dL Hemoglobin (13.0-17.5) gm/dL Chloride (98-107) mmol/L Creatinine (0.66-1.25) mg/dL Glucose (74-99) mg/dL POC Glucose (mg/dL) 116 H 101 H 120 H (75-99) mg/dL Calcium (8.4-10.2) mg/dL Ionized Calcium Marshall (4.5-5.3) mg/dL Magnesium (1.6-2.3) mg/dL Total Protein (6.3-8.2) g/dL Albumin (3.5-5.0) g/dL Arterial Blood Glucose (75-99) mg/dL Crossmatch 11/19/21 11/19/21 11/19/21 Range/Units 04:00 04:00 04:02 WBC (3.8-10.6) k/uL RBC 3.77 L (4.30-5.90) m/uL Hgb 11.2 L (13.0-17.5) gm/dL Hct 34.6 L (39.0-53.0) % Neutrophils # 8.1 H (1.3-7.7) k/uL Lymphocytes # (1.0-4.8) k/uL ABG pO2 (83-108) mmHg ABG Total CO2 (19-24) mmol/L ABG O2 Saturation (94-97) % ABG Hematocrit (34.0-46.0) % ABG Glucose (75-99) mg/dL Hemoglobin (13.0-17.5) gm/dL Chloride (98-107) mmol/L Creatinine (0.66-1.25) mg/dL Glucose 107 H (74-99) mg/dL POC Glucose (mg/dL) 113 H (75-99) mg/dL Calcium 8.3 L (8.4-10.2) mg/dL Ionized Calcium Marshall (4.5-5.3) mg/dL Magnesium (1.6-2.3) mg/dL Total Protein 5.5 L (6.3-8.2) g/dL Albumin 3.4 L (3.5-5.0) g/dL Arterial Blood Glucose (75-99) mg/dL Crossmatch 11/19/21 11/19/21 11/19/21 Range/Units 04:57 06:09 06:56 WBC (3.8-10.6) k/uL RBC (4.30-5.90) m/uL Hgb (13.0-17.5) gm/dL Hct (39.0-53.0) % Neutrophils # (1.3-7.7) k/uL Lymphocytes # (1.0-4.8) k/uL ABG pO2 (83-108) mmHg ABG Total CO2 (19-24) mmol/L ABG O2 Saturation (94-97) % ABG Hematocrit (34.0-46.0) % ABG Glucose (75-99) mg/dL Hemoglobin (13.0-17.5) gm/dL Chloride (98-107) mmol/L Creatinine (0.66-1.25) mg/dL Glucose (74-99) mg/dL POC Glucose (mg/dL) 118 H 141 H 136 H (75-99) mg/dL Calcium (8.4-10.2) mg/dL Ionized Calcium Marshall (4.5-5.3) mg/dL Magnesium (1.6-2.3) mg/dL Total Protein (6.3-8.2) g/dL Albumin (3.5-5.0) g/dL Arterial Blood Glucose (75-99) mg/dL Crossmatch - Imaging and Cardiology Chest x-ray: image reviewed Assessment and Plan Assessment: 1. Coronary artery disease, unstable angina with previous PCI, status post three-vessel off-pump CABG 2. Hypertension 3. Hyperlipidemia, treated, cholesterol 107, LDL 47 4. Peripheral arterial disease 5. Previous tobacco dependence, preoperative FEV1 98% of predicted 6. GERD 7. Prediabetes, preoperative hemoglobin C6 percent 8. Vaccinated against covid 9. Postoperative acute blood loss anemia, expected Plan: 1. Continue aspirin, statin, Plavix, beta irais therapy. Will increase beta irais therapy as tolerated 2. Wean O2 as tolerated. Encourage incentive spirometry is 10 times every hour while awake. Bronchodilators per pulmonology 3. Increase activity as tolerated. PT/OT/cardiac rehab consulted 4. Will monitor daily labs and x-rays. Electrolyte replacement per protocol 5. GI/DVT prophylaxis 6. Insulin management per primary care service 7. Will discontinue [place]. Connect Cordis to continuous CVP monitoring 8. Pain control with current medication regimen 9. Continue mediastinal/right/left pleural chest tubes for another 24 hours 10. Continue Brown catheter for another 24 hours for strict accurate intake and output. Daily weights 11. More recommendations to follow based on patient's progress
[2021-11-19] MEDS: IPRATROPIUM-ALBUTEROL 3 ML NEB INHALATION SCH ×4 (08:27→19:50)
--- NOTE | 2021-11-19 08:34 | XR ---
EXAMINATION TYPE: XR chest 1V portable DATE OF EXAM: 11/19/2021 COMPARISON: 11/18/2021 INDICATION: Postop cardiac surgery TECHNIQUE: Single frontal view of the chest is obtained. FINDINGS: The heart size is mildly prominent.. The pulmonary vasculature is normal. Sternotomy wires are in the midline. Mediastinal tube is present. Left-sided chest tube is present. R ight chest tube is at the lung base. No pneumothorax is. [place] catheter is present tip in the megan n pulmonary artery. Some mild infiltrate may be at the left base and left costophrenic angle. This is slightly worsened o bandar the interval. Some mild atelectatic type change may be at the right base. IMPRESSION: 1. Bibasilar atelectasis. 2. Multiple lines and catheters discussed above.
[2021-11-19] MEDS: CLOPIDOGREL 75 MG TAB PO SCH (08:37)
[2021-11-19] MEDS: METOPROLOL TARTRATE 25 MG TAB PO SCH (08:37)
[2021-11-19] MEDS: ASPIRIN 325 MG TAB PO SCH (08:37)
[2021-11-19] MEDS: HEPARIN SODIUM,PORCINE/PF 5,000 UNIT/0.5 ML SYRINGE SQ SCH ×3 (08:37→23:16)
[2021-11-19] MEDS: ATORVASTATIN 40 MG TAB PO SCH (08:38)
[2021-11-19] MEDS ORDERED: PANTOPRAZOLE 40 MG/10 ML VIAL IVP SCH (09:00)
[2021-11-19] MEDS ORDERED: METOPROLOL TARTRATE 12.5 MG TAB PO SCH ×2 (09:00)
[2021-11-19] MEDS ORDERED: MAGNESIUM HYDROXIDE 2,400 MG/10 ML CUP PO PRN (09:00)
[2021-11-19] MEDS ORDERED: bisacodyL 10 MG SUPP RECTAL PRN (09:00)
[2021-11-19 09:59] LABS: Iron 13 ug/dL (65-175); Total Iron Binding Capacity 245 ug/dL (228-460)
[2021-11-19 10:27] LABS: Glucose,Whole Blood 111 mg/dL (75-99)
--- NOTE | 2021-11-19 10:36 | P.PN ---
Subjective Progress Note Date: 11/19/21 Principal diagnosis: off-pump coronary artery bypass graft 3 postoperative day #1 This is a 66-year-old white male with history of coronary artery disease, multiple stents in the past, patient had a recent cardiac catheterization, this was done by Dr. Karthik Nuñez, and he was found to have three-vessel coronary artery disease, with in-stent restenosis of the proximal LAD stent. Patient was advised to undergo CABG, considering the patient lives in [facility], he was referred to Dr. Vasquez, and today he underwent elective off-pump CABG 3 with RAMIREZ to LAD free DEBI T graft off RAMIREZ to obtuse marginal #2, saphenous vein graft to PDA. Postoperatively patient was admitted to the ICU on mechanical ventilation, and I was asked to see him on consultation. Patient is now on assist control mode of mechanical ventilation, rate is set at 12 tidal volume is 500 FiO2 was 100% and I cut it down to 40%, and PEEP at 5. ABG showed a pO2 of more than 400 pCO2 of 49 pH of 7.34 hence his rate was increased to 14 FiO2 down to 40% and no other changes made on his ventilator settings. Patient is sedated, on clevidipine 2 mg/h, on propofol 35 mcg/kg/m on insulin drip at 1 unit per hour nitroglycerin drip. Patient is hemodynamically stable his cardiac index is 3.4. Chest x-ray showed no evidence of acute abnormality endotracheal tube, chest tubes, mediastinal tube are all in proper position. Patient was reevaluated today on 11/19/21, he is now postoperative day #1.off-p ump coronary artery bypass graft 3 with left internal mammary artery to the left anterior descending artery, free right internal mammary artery T graft off the left internal mammary artery to the obtuse marginal #2, reverse greater saphenous vein graft to the posterior descending artery with endovascular vein harvest and ligation of the left atrial appendage with a 35 mm AtriCure clip, intraoperative transesophageal echocardiogram pre-and postoperatively performed by anesthesia. Patient was extubated yesterday x-ray at 16:59. He is now sitting at a bedside chair, he is on 3 L nasal cannula. Doing poorly with incentive spirometry, achieving less than 500 mL. Patient feels weak, but not i n any form of respiratory distress. His right and left sided chest tube drained about 800 mL overnight. Of serosanguineous fluid. And his mediastinal tube drained about 200 mL. Cardiac index today is 2.71. His chest x-ray showed minimal atelectasis, expected considering his surgery. His PA catheter has been removed. Patient is not requiring any inotropes, not requiring any pressors. His IV fluid at 50 mL per hour in the form of LR. Patient is receiving insulin at 2 units per hour Objective - Vital Signs Vital signs: Vital Signs Temp 97.9 F 11/19/21 08:00 Pulse 61 11/19/21 09:30 Resp 7 L 11/19/21 09:30 BP 94/53 11/19/21 09:00 Pulse Ox 96 11/19/21 09:30 Intake & Output 11/18/21 11/19/21 11/19/21 18:59 06:59 18:59 Intake Total 724.411 4277.792 60.5 Output Total 2030 1784 30 Balance -1377.692 -446.208 30.5 Weight 86.3 kg Intake: IV 101 830.0 60.5 LR @ 50ml/hr 550 50 Nitro gtt 15.0 1.5 cardiac output 30 160 pressure bags 18 105 9 Intake, IV Titration 551.308 257.792 Amount ACETAMINOPHEN IV (For NPO 100 ) 1,000 mg In Empty Bag 1 bag @ 400 mls/hr IVPB Q6HR [facility] Rx#:[id number] Clevidipine Butyrate 25 8 37.6 mg In Empty Bag 1 bag @ 1 MG/HR 2 mls/hr IV .Q24H [facility] Rx#:[id number] Insulin Regular 100 unit 10.934 20.192 In Sodium Chloride 0.9% 100 ml @ Per Protocol IV .Q0M [facility] Rx#:[id number] Lactated Ringers 1,000 ml 250 50 @ 30 mls/hr IV .Q24H [facility] Rx#:[id number] Magnesium Sulfate-D5w Pmx 200 1 gm In Dextrose/Water 1 100ml.bag @ 100 mls/hr IVPB Q1H [facility] Rx#: [id number] ceFAZolin 2 gm In Sodium 50 50 Chloride 0.9% 50 ml @ 100 mls/hr IVPB Q8HR [facility] Rx# :[id number] propofoL 1,000 mg In 32.374 Empty Bag 1 bag @ Titrate IV .Q0M [facility] Rx#: [id number] Oral 250 Output: Chest Tube Drainage 385 544 20 left and right pleural 260 435 10 medistinal 125 109 10 Urine 1045 1240 10 Estimated Blood Loss 600 Other: Voiding Method Indwelling Catheter Indwelling Catheter Indwelling Catheter ABP, PAP, CO, CI - Last Documented Arterial Blood Pressure 85/40 Pulmonary Artery Pressure 28/10 Cardiac Output 5.6 Cardiac Index 2.7 - Exam CONSTITUTIONAL: Revealed 66-year-old white male in no distress. RESPIRATORY: Symmetrical chest expansion, diminished breath sounds at the bases, no rhonchi and no wheezes. CARDIOVASCULAR: Normal S1 and S2, no S3 gallop, positive pericardial rub. Sternum is stable. GASTROINTESTINAL: Soft nontender no megaly no rebound no guarding. INTEGUMENTARY: No rashes, anterior chest incision is intact. NEUROLOGIC: Alert and oriented 3 no gross focal deficits. MUSKULOSKELETAL: No deformities and no limitation in range of motion PSYCHIATRIC: Normal mood, affect and normal mental status examination. - Labs CBC & Chem 7: 11/19/21 04:00 11/19/21 04:00 Labs: Abnormal Lab Results - Last 24 Hours (Table) 11/12/21 11/18/21 11/18/21 Range/Units 09:44 08:31 13:29 WBC (3.8-10.6) k/uL RBC (4.30-5.90) m/uL Hgb (13.0-17.5) gm/dL Hct (39.0-53.0) % Neutrophils # (1.3-7.7) k/uL Lymphocytes # (1.0-4.8) k/uL ABG pO2 76 L (83-108) mmHg ABG Total CO2 26 H (19-24) mmol/L ABG O2 Saturation (94-97) % ABG Hematocrit 31 L (34.0-46.0) % ABG Glucose 127 H (75-99) mg/dL Hemoglobin 10.0 L (13.0-17.5) gm/dL Chloride (98-107) mmol/L Creatinine (0.66-1.25) mg/dL Glucose (74-99) mg/dL POC Glucose (mg/dL) 139 H (75-99) mg/dL Calcium (8.4-10.2) mg/dL Ionized Calcium Marshall (4.5-5.3) mg/dL Magnesium (1.6-2.3) mg/dL Iron (65-175) ug/dL % Saturation (15.00-50.00) Transferrin (204.0-354.0) mg/dL Total Protein (6.3-8.2) g/dL Albumin (3.5-5.0) g/dL Arterial Blood Glucose 127 H (75-99) mg/dL Crossmatch See Detail 11/18/21 11/18/21 11/18/21 Range/Units 13:30 13:30 15:17 WBC (3.8-10.6) k/uL RBC 3.36 L (4.30-5.90) m/uL Hgb 10.4 L (13.0-17.5) gm/dL Hct 30.4 L (39.0-53.0) % Neutrophils # 7.9 H (1.3-7.7) k/uL Lymphocytes # (1.0-4.8) k/uL ABG pO2 (83-108) mmHg ABG Total CO2 (19-24) mmol/L ABG O2 Saturation (94-97) % ABG Hematocrit (34.0-46.0) % ABG Glucose (75-99) mg/dL Hemoglobin (13.0-17.5) gm/dL Chloride 109 H (98-107) mmol/L Creatinine 0.63 L (0.66-1.25) mg/dL Glucose 130 H (74-99) mg/dL POC Glucose (mg/dL) 159 H (75-99) mg/dL Calcium (8.4-10.2) mg/dL Ionized Calcium Marshall 5.5 H (4.5-5.3) mg/dL Magnesium 1.5 L (1.6-2.3) mg/dL Iron (65-175) ug/dL % Saturation (15.00-50.00) Transferrin (204.0-354.0) mg/dL Total Protein 5.6 L (6.3-8.2) g/dL Albumin 3.4 L (3.5-5.0) g/dL Arterial Blood Glucose (75-99) mg/dL Crossmatch 03/22/22 03/22/22 03/22/22 Range/Units 16:20 16:20 16:49 WBC 11.5 H (3.8-10.6) k/uL RBC 3.70 L (4.30-5.90) m/uL Hgb 11.3 L (13.0-17.5) gm/dL Hct 33.4 L (39.0-53.0) % Neutrophils # 9.5 H (1.3-7.7) k/uL Lymphocytes # (1.0-4.8) k/uL ABG pO2 (83-108) mmHg ABG Total CO2 26 H (19-24) mmol/L ABG O2 Saturation 97.3 H (94-97) % ABG Hematocrit (34.0-46.0) % ABG Glucose (75-99) mg/dL Hemoglobin (13.0-17.5) gm/dL Chloride (98-107) mmol/L Creatinine (0.66-1.25) mg/dL Glucose (74-99) mg/dL POC Glucose (mg/dL) 174 H (75-99) mg/dL Calcium (8.4-10.2) mg/dL Ionized Calcium Marshall (4.5-5.3) mg/dL Magnesium (1.6-2.3) mg/dL Iron (65-175) ug/dL % Saturation (15.00-50.00) Transferrin (204.0-354.0) mg/dL Total Protein (6.3-8.2) g/dL Albumin (3.5-5.0) g/dL Arterial Blood Glucose (75-99) mg/dL Crossmatch 11/18/21 11/18/21 11/18/21 Range/Units 17:07 18:04 19:02 WBC (3.8-10.6) k/uL RBC (4.30-5.90) m/uL Hgb (13.0-17.5) gm/dL Hct (39.0-53.0) % Neutrophils # (1.3-7.7) k/uL Lymphocytes # (1.0-4.8) k/uL ABG pO2 (83-108) mmHg ABG Total CO2 (19-24) mmol/L ABG O2 Saturation (94-97) % ABG Hematocrit (34.0-46.0) % ABG Glucose (75-99) mg/dL Hemoglobin (13.0-17.5) gm/dL Chloride (98-107) mmol/L Creatinine (0.66-1.25) mg/dL Glucose (74-99) mg/dL POC Glucose (mg/dL) 182 H 157 H 120 H (75-99) mg/dL Calcium (8.4-10.2) mg/dL Ionized Calcium Marshall (4.5-5.3) mg/dL Magnesium (1.6-2.3) mg/dL Iron (65-175) ug/dL % Saturation (15.00-50.00) Transferrin (204.0-354.0) mg/dL Total Protein (6.3-8.2) g/dL Albumin (3.5-5.0) g/dL Arterial Blood Glucose (75-99) mg/dL Crossmatch 11/18/21 11/18/21 11/18/21 Range/Units 19:59 20:00 21:15 WBC 11.8 H (3.8-10.6) k/uL RBC 3.75 L (4.30-5.90) m/uL Hgb 11.9 L (13.0-17.5) gm/dL Hct 34.3 L (39.0-53.0) % Neutrophils # 10.6 H (1.3-7.7) k/uL Lymphocytes # 0.7 L (1.0-4.8) k/uL ABG pO2 (83-108) mmHg ABG Total CO2 (19-24) mmol/L ABG O2 Saturation (94-97) % ABG Hematocrit (34.0-46.0) % ABG Glucose (75-99) mg/dL Hemoglobin (13.0-17.5) gm/dL Chloride (98-107) mmol/L Creatinine (0.66-1.25) mg/dL Glucose (74-99) mg/dL POC Glucose (mg/dL) 122 H 116 H (75-99) mg/dL Calcium (8.4-10.2) mg/dL Ionized Calcium Marshall (4.5-5.3) mg/dL Magnesium (1.6-2.3) mg/dL Iron (65-175) ug/dL % Saturation (15.00-50.00) Transferrin (204.0-354.0) mg/dL Total Protein (6.3-8.2) g/dL Albumin (3.5-5.0) g/dL Arterial Blood Glucose (75-99) mg/dL Crossmatch 11/18/21 11/18/21 11/19/21 Range/Units 22:16 23:14 00:05 WBC (3.8-10.6) k/uL RBC (4.30-5.90) m/uL Hgb (13.0-17.5) gm/dL Hct (39.0-53.0) % Neutrophils # (1.3-7.7) k/uL Lymphocytes # (1.0-4.8) k/uL ABG pO2 (83-108) mmHg ABG Total CO2 (19-24) mmol/L ABG O2 Saturation (94-97) % ABG Hematocrit (34.0-46.0) % ABG Glucose (75-99) mg/dL Hemoglobin (13.0-17.5) gm/dL Chloride (98-107) mmol/L Creatinine (0.66-1.25) mg/dL Glucose (74-99) mg/dL POC Glucose (mg/dL) 108 H 125 H 129 H (75-99) mg/dL Calcium (8.4-10.2) mg/dL Ionized Calcium Marshall (4.5-5.3) mg/dL Magnesium (1.6-2.3) mg/dL Iron (65-175) ug/dL % Saturation (15.00-50.00) Transferrin (204.0-354.0) mg/dL Total Protein (6.3-8.2) g/dL Albumin (3.5-5.0) g/dL Arterial Blood Glucose (75-99) mg/dL Crossmatch 11/19/21 11/19/21 11/19/21 Range/Units 00:58 02:02 03:03 WBC (3.8-10.6) k/uL RBC (4.30-5.90) m/uL Hgb (13.0-17.5) gm/dL Hct (39.0-53.0) % Neutrophils # (1.3-7.7) k/uL Lymphocytes # (1.0-4.8) k/uL ABG pO2 (83-108) mmHg ABG Total CO2 (19-24) mmol/L ABG O2 Saturation (94-97) % ABG Hematocrit (34.0-46.0) % ABG Glucose (75-99) mg/dL Hemoglobin (13.0-17.5) gm/dL Chloride (98-107) mmol/L Creatinine (0.66-1.25) mg/dL Glucose (74-99) mg/dL POC Glucose (mg/dL) 116 H 101 H 120 H (75-99) mg/dL Calcium (8.4-10.2) mg/dL Ionized Calcium Marshall (4.5-5.3) mg/dL Magnesium (1.6-2.3) mg/dL Iron (65-175) ug/dL % Saturation (15.00-50.00) Transferrin (204.0-354.0) mg/dL Total Protein (6.3-8.2) g/dL Albumin (3.5-5.0) g/dL Arterial Blood Glucose (75-99) mg/dL Crossmatch 11/19/21 11/19/21 11/19/21 Range/Units 04:00 04:00 04:02 WBC (3.8-10.6) k/uL RBC 3.77 L (4.30-5.90) m/uL Hgb 11.2 L (13.0-17.5) gm/dL Hct 34.6 L (39.0-53.0) % Neutrophils # 8.1 H (1.3-7.7) k/uL Lymphocytes # (1.0-4.8) k/uL ABG pO2 (83-108) mmHg ABG Total CO2 (19-24) mmol/L ABG O2 Saturation (94-97) % ABG Hematocrit (34.0-46.0) % ABG Glucose (75-99) mg/dL Hemoglobin (13.0-17.5) gm/dL Chloride (98-107) mmol/L Creatinine (0.66-1.25) mg/dL Glucose 107 H (74-99) mg/dL POC Glucose (mg/dL) 113 H (75-99) mg/dL Calcium 8.3 L (8.4-10.2) mg/dL Ionized Calcium Marshall (4.5-5.3) mg/dL Magnesium (1.6-2.3) mg/dL Iron 13 L (65-175) ug/dL % Saturation 5.10 L (15.00-50.00) Transferrin 175.0 L (204.0-354.0) mg/dL Total Protein 5.5 L (6.3-8.2) g/dL Albumin 3.4 L (3.5-5.0) g/dL Arterial Blood Glucose (75-99) mg/dL Crossmatch 11/19/21 11/19/21 11/19/21 Range/Units 04:57 06:09 06:56 WBC (3.8-10.6) k/uL RBC (4.30-5.90) m/uL Hgb (13.0-17.5) gm/dL Hct (39.0-53.0) % Neutrophils # (1.3-7.7) k/uL Lymphocytes # (1.0-4.8) k/uL ABG pO2 (83-108) mmHg ABG Total CO2 (19-24) mmol/L ABG O2 Saturation (94-97) % ABG Hematocrit (34.0-46.0) % ABG Glucose (75-99) mg/dL Hemoglobin (13.0-17.5) gm/dL Chloride (98-107) mmol/L Creatinine (0.66-1.25) mg/dL Glucose (74-99) mg/dL POC Glucose (mg/dL) 118 H 141 H 136 H (75-99) mg/dL Calcium (8.4-10.2) mg/dL Ionized Calcium Marshall (4.5-5.3) mg/dL Magnesium (1.6-2.3) mg/dL Iron (65-175) ug/dL % Saturation (15.00-50.00) Transferrin (204.0-354.0) mg/dL Total Protein (6.3-8.2) g/dL Albumin (3.5-5.0) g/dL Arterial Blood Glucose (75-99) mg/dL Crossmatch 11/19/21 Range/Units 10:25 WBC (3.8-10.6) k/uL RBC (4.30-5.90) m/uL Hgb (13.0-17.5) gm/dL Hct (39.0-53.0) % Neutrophils # (1.3-7.7) k/uL Lymphocytes # (1.0-4.8) k/uL ABG pO2 (83-108) mmHg ABG Total CO2 (19-24) mmol/L ABG O2 Saturation (94-97) % ABG Hematocrit (34.0-46.0) % ABG Glucose (75-99) mg/dL Hemoglobin (13.0-17.5) gm/dL Chloride (98-107) mmol/L Creatinine (0.66-1.25) mg/dL Glucose (74-99) mg/dL POC Glucose (mg/dL) 111 H (75-99) mg/dL Calcium (8.4-10.2) mg/dL Ionized Calcium Marshall (4.5-5.3) mg/dL Magnesium (1.6-2.3) mg/dL Iron (65-175) ug/dL % Saturation (15.00-50.00) Transferrin (204.0-354.0) mg/dL Total Protein (6.3-8.2) g/dL Albumin (3.5-5.0) g/dL Arterial Blood Glucose (75-99) mg/dL Crossmatch Assessment and Plan Assessment: Impression: Status post off-pump CABG 3, postoperative day #1. History of triple-vessel coronary artery disease Benign essential hypertension Peripheral vessel occlusive disease Ex-smoker, patient quit smoking in May he had a [id number] smoking history. Postoperative atelectasis, expected Acute blood loss anemia, expected. Recommendation: Continue incentive spirometry and encouraged to use more frequently Continue aspirin statins and Plavix and beta blockers Early ambulation. Discontinue unnecessary catheters and tubes. Continue GI and DVT prophylaxis Monitor sugars and treat accordingly. Monitor data x-rays of the chest. We'll continue to follow. Time with Patient: Less than 30
[2021-11-19 11:45] VITALS: BMI 26.5
[2021-11-19] MEDS: LACTATED RINGERS 1,000 ML IV SCH (11:55)
[2021-11-19] MEDS: INSULIN ASPART (NovoLOG) 100 UNIT/ML VIAL SQ SCH ×3 (12:27→19:57)
--- NOTE | 2021-11-19 14:16 | P.PN ---
Subjective Progress Note Date: 11/19/21 Patient is a 66-year-old male with coronary artery disease status post multiple stenting, GERD, HTN, and HLD who presented for elective off-pump CABG 3. This morning patient denies any acute complaints. He is sitting in the chair. He is on insulin drip evident transition to sliding scale insulin. Objective - Vital Signs Vital signs: Vital Signs Temp 97.9 F 11/19/21 08:00 Pulse 77 11/19/21 12:00 Resp 13 11/19/21 12:00 BP 94/53 11/19/21 09:00 Pulse Ox 95 11/19/21 12:00 Intake & Output 11/18/21 11/19/21 11/19/21 18:59 06:59 18:59 Intake Total 209.000 9002.792 619.5 Output Total 2030 1784 285 Balance -1377.692 -446.208 334.5 Weight 86.3 kg 86.3 kg Intake: IV 101 830.0 329.5 LR @ 50ml/hr 550 270 Nitro gtt 15.0 1.5 cardiac output 30 160 10 pressure bags 18 105 48 Intake, IV Titration 551.308 257.792 50 Amount ACETAMINOPHEN IV (For NPO 100 ) 1,000 mg In Empty Bag 1 bag @ 400 mls/hr IVPB Q6HR [facility] Rx#:[id number] Clevidipine Butyrate 25 8 37.6 mg In Empty Bag 1 bag @ 1 MG/HR 2 mls/hr IV .Q24H [facility] Rx#:[id number] Insulin Regular 100 unit 10.934 20.192 In Sodium Chloride 0.9% 100 ml @ Per Protocol IV .Q0M [facility] Rx#:[id number] Lactated Ringers 1,000 ml 250 50 @ 30 mls/hr IV .Q24H [facility] Rx#:[id number] Magnesium Sulfate-D5w Pmx 200 1 gm In Dextrose/Water 1 100ml.bag @ 100 mls/hr IVPB Q1H [facility] Rx#: [id number] ceFAZolin 2 gm In Sodium 50 50 50 Chloride 0.9% 50 ml @ 100 mls/hr IVPB Q8HR [facility] Rx# :[id number] propofoL 1,000 mg In 32.374 Empty Bag 1 bag @ Titrate IV .Q0M [facility] Rx#: [id number] Oral 250 240 Output: Chest Tube Drainage 385 544 120 left and right pleural 260 435 80 medistinal 125 109 40 Urine 1045 1240 165 Estimated Blood Loss 600 Other: Voiding Method Indwelling Catheter Indwelling Catheter Indwelling Catheter ABP, PAP, CO, CI - Last Documented Arterial Blood Pressure 106/48 Pulmonary Artery Pressure 28/10 Cardiac Output 5.6 Cardiac Index 2.7 - Exam General examination - Alert and Oriented 3 in NAD Heart - + S1S2 no murmurs Lungs - Clear to auscultation, chest brace on Abdomen soft NT ND +ve BS Extremities - No edema [employer]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 Psych - Calm and cooperative - Labs CBC & Chem 7: 11/19/21 04:00 11/19/21 04:00 Labs: Abnormal Lab Results - Last 24 Hours (Table) 11/12/21 11/18/21 11/18/21 Range/Units 09:44 13:30 15:17 WBC (3.8-10.6) k/uL RBC (4.30-5.90) m/uL Hgb (13.0-17.5) gm/dL Hct (39.0-53.0) % Neutrophils # (1.3-7.7) k/uL Lymphocytes # (1.0-4.8) k/uL ABG Total CO2 (19-24) mmol/L ABG O2 Saturation (94-97) % Chloride 109 H (98-107) mmol/L Creatinine 0.63 L (0.66-1.25) mg/dL Glucose 130 H (74-99) mg/dL POC Glucose (mg/dL) 159 H (75-99) mg/dL Calcium (8.4-10.2) mg/dL Magnesium 1.5 L (1.6-2.3) mg/dL Iron (65-175) ug/dL % Saturation (15.00-50.00) Transferrin (204.0-354.0) mg/dL Total Protein 5.6 L (6.3-8.2) g/dL Albumin 3.4 L (3.5-5.0) g/dL Crossmatch See Detail 11/18/21 11/18/21 11/18/21 Range/Units 16:20 16:20 16:49 WBC 11.5 H (3.8-10.6) k/uL RBC 3.70 L (4.30-5.90) m/uL Hgb 11.3 L (13.0-17.5) gm/dL Hct 33.4 L (39.0-53.0) % Neutrophils # 9.5 H (1.3-7.7) k/uL Lymphocytes # (1.0-4.8) k/uL ABG Total CO2 26 H (19-24) mmol/L ABG O2 Saturation 97.3 H (94-97) % Chloride (98-107) mmol/L Creatinine (0.66-1.25) mg/dL Glucose (74-99) mg/dL POC Glucose (mg/dL) 174 H (75-99) mg/dL Calcium (8.4-10.2) mg/dL Magnesium (1.6-2.3) mg/dL Iron (65-175) ug/dL % Saturation (15.00-50.00) Transferrin (204.0-354.0) mg/dL Total Protein (6.3-8.2) g/dL Albumin (3.5-5.0) g/dL Crossmatch 11/18/21 11/18/21 11/18/21 Range/Units 17:07 18:04 19:02 WBC (3.8-10.6) k/uL RBC (4.30-5.90) m/uL Hgb (13.0-17.5) gm/dL Hct (39.0-53.0) % Neutrophils # (1.3-7.7) k/uL Lymphocytes # (1.0-4.8) k/uL ABG Total CO2 (19-24) mmol/L ABG O2 Saturation (94-97) % Chloride (98-107) mmol/L Creatinine (0.66-1.25) mg/dL Glucose (74-99) mg/dL POC Glucose (mg/dL) 182 H 157 H 120 H (75-99) mg/dL Calcium (8.4-10.2) mg/dL Magnesium (1.6-2.3) mg/dL Iron (65-175) ug/dL % Saturation (15.00-50.00) Transferrin (204.0-354.0) mg/dL Total Protein (6.3-8.2) g/dL Albumin (3.5-5.0) g/dL Crossmatch 11/18/21 11/18/21 11/18/21 Range/Units 19:59 20:00 21:15 WBC 11.8 H (3.8-10.6) k/uL RBC 3.75 L (4.30-5.90) m/uL Hgb 11.9 L (13.0-17.5) gm/dL Hct 34.3 L (39.0-53.0) % Neutrophils # 10.6 H (1.3-7.7) k/uL Lymphocytes # 0.7 L (1.0-4.8) k/uL ABG Total CO2 (19-24) mmol/L ABG O2 Saturation (94-97) % Chloride (98-107) mmol/L Creatinine (0.66-1.25) mg/dL Glucose (74-99) mg/dL POC Glucose (mg/dL) 122 H 116 H (75-99) mg/dL Calcium (8.4-10.2) mg/dL Magnesium (1.6-2.3) mg/dL Iron (65-175) ug/dL % Saturation (15.00-50.00) Transferrin (204.0-354.0) mg/dL Total Protein (6.3-8.2) g/dL Albumin (3.5-5.0) g/dL Crossmatch 11/18/21 11/18/21 11/19/21 Range/Units 22:16 23:14 00:05 WBC (3.8-10.6) k/uL RBC (4.30-5.90) m/uL Hgb (13.0-17.5) gm/dL Hct (39.0-53.0) % Neutrophils # (1.3-7.7) k/uL Lymphocytes # (1.0-4.8) k/uL ABG Total CO2 (19-24) mmol/L ABG O2 Saturation (94-97) % Chloride (98-107) mmol/L Creatinine (0.66-1.25) mg/dL Glucose (74-99) mg/dL POC Glucose (mg/dL) 108 H 125 H 129 H (75-99) mg/dL Calcium (8.4-10.2) mg/dL Magnesium (1.6-2.3) mg/dL Iron (65-175) ug/dL % Saturation (15.00-50.00) Transferrin (204.0-354.0) mg/dL Total Protein (6.3-8.2) g/dL Albumin (3.5-5.0) g/dL Crossmatch 11/19/21 11/19/21 11/19/21 Range/Units 00:58 02:02 03:03 WBC (3.8-10.6) k/uL RBC (4.30-5.90) m/uL Hgb (13.0-17.5) gm/dL Hct (39.0-53.0) % Neutrophils # (1.3-7.7) k/uL Lymphocytes # (1.0-4.8) k/uL ABG Total CO2 (19-24) mmol/L ABG O2 Saturation (94-97) % Chloride (98-107) mmol/L Creatinine (0.66-1.25) mg/dL Glucose (74-99) mg/dL POC Glucose (mg/dL) 116 H 101 H 120 H (75-99) mg/dL Calcium (8.4-10.2) mg/dL Magnesium (1.6-2.3) mg/dL Iron (65-175) ug/dL % Saturation (15.00-50.00) Transferrin (204.0-354.0) mg/dL Total Protein (6.3-8.2) g/dL Albumin (3.5-5.0) g/dL Crossmatch 11/19/21 11/19/21 11/19/21 Range/Units 04:00 04:00 04:02 WBC (3.8-10.6) k/uL RBC 3.77 L (4.30-5.90) m/uL Hgb 11.2 L (13.0-17.5) gm/dL Hct 34.6 L (39.0-53.0) % Neutrophils # 8.1 H (1.3-7.7) k/uL Lymphocytes # (1.0-4.8) k/uL ABG Total CO2 (19-24) mmol/L ABG O2 Saturation (94-97) % Chloride (98-107) mmol/L Creatinine (0.66-1.25) mg/dL Glucose 107 H (74-99) mg/dL POC Glucose (mg/dL) 113 H (75-99) mg/dL Calcium 8.3 L (8.4-10.2) mg/dL Magnesium (1.6-2.3) mg/dL Iron 13 L (65-175) ug/dL % Saturation 5.10 L (15.00-50.00) Transferrin 175.0 L (204.0-354.0) mg/dL Total Protein 5.5 L (6.3-8.2) g/dL Albumin 3.4 L (3.5-5.0) g/dL Crossmatch 11/19/21 11/19/21 11/19/21 Range/Units 04:57 06:09 06:56 WBC (3.8-10.6) k/uL RBC (4.30-5.90) m/uL Hgb (13.0-17.5) gm/dL Hct (39.0-53.0) % Neutrophils # (1.3-7.7) k/uL Lymphocytes # (1.0-4.8) k/uL ABG Total CO2 (19-24) mmol/L ABG O2 Saturation (94-97) % Chloride (98-107) mmol/L Creatinine (0.66-1.25) mg/dL Glucose (74-99) mg/dL POC Glucose (mg/dL) 118 H 141 H 136 H (75-99) mg/dL Calcium (8.4-10.2) mg/dL Magnesium (1.6-2.3) mg/dL Iron (65-175) ug/dL % Saturation (15.00-50.00) Transferrin (204.0-354.0) mg/dL Total Protein (6.3-8.2) g/dL Albumin (3.5-5.0) g/dL Crossmatch 11/19/21 Range/Units 10:25 WBC (3.8-10.6) k/uL RBC (4.30-5.90) m/uL Hgb (13.0-17.5) gm/dL Hct (39.0-53.0) % Neutrophils # (1.3-7.7) k/uL Lymphocytes # (1.0-4.8) k/uL ABG Total CO2 (19-24) mmol/L ABG O2 Saturation (94-97) % Chloride (98-107) mmol/L Creatinine (0.66-1.25) mg/dL Glucose (74-99) mg/dL POC Glucose (mg/dL) 111 H (75-99) mg/dL Calcium (8.4-10.2) mg/dL Magnesium (1.6-2.3) mg/dL Iron (65-175) ug/dL % Saturation (15.00-50.00) Transferrin (204.0-354.0) mg/dL Total Protein (6.3-8.2) g/dL Albumin (3.5-5.0) g/dL Crossmatch Assessment and Plan Assessment: Patient is a 66-year-old male status post triple vessel bypass therapy -Management as per primary team -Patient encouraged to use incentive spirometry -Patient is on aspirin and statin and Plavix and beta blockers Acute blood loss anemia -Anticipated outcome of surgery -Hemoglobin stable this morning Prediabetes - Outpatient A1C pre op was 6 - will need glucometer on discharge - will need repeat A1C in 3 months. -Transition patient from insulin drip to sliding scale insulin Hypomagnesemia -Replete as needed Hypertension -Management per primary team Dyslipidemia - Crestor Thank you for allowing us to participate in the care of this pleasant patient. Do not hesitate to contact us with questions. Someone can be reached from the [facility] hospitalist group all hours of the day at [phone] or via perfect serve.
[2021-11-19] MEDS ORDERED: HYDROcodone/APAP 7.5-325MG 1 EACH TAB PO PRN (15:30)
[2021-11-19] MEDS: HYDROcodone/APAP 7.5-325MG 1 EACH TAB PO PRN ×2 (15:56→20:05)
[2021-11-19 16:51] LABS: Glucose,Whole Blood 124 mg/dL (75-99)
[2021-11-19 19:58] LABS: Glucose,Whole Blood 117 mg/dL (75-99)
[2021-11-19] MEDS: PRAMIPEXOLE 1 MG TAB PO SCH (20:04)
[2021-11-19] MEDS: METOPROLOL TARTRATE 12.5 MG TAB PO SCH (20:04)
[2021-11-19] MEDS: SENNOSIDES-DOCUSATE SODIUM 1 EACH TAB PO SCH (20:05)
[2021-11-20] MEDS: HYDROcodone/APAP 7.5-325MG 1 EACH TAB PO PRN ×2 (03:04→21:51)
[2021-11-20 03:23] LABS: Basophils % (A) 0 %; Eosinophils # (A) 0.1 k/uL (0-0.7); Eosinophils % (A) 2 %; HCT 30.6 % (39.0-53.0); HGB 10.3 gm/dL (13.0-17.5); Lymphocytes # (A) 1.5 k/uL (1.0-4.8); Lymphocytes % (A) 17 %; MCHC 33.6 g/dL (31.0-37.0); MCV 92.1 fL (80.0-100.0); Mean Platelet Volume 7.5; Monocytes # (A) 0.2 k/uL (0-1.0); Monocytes % (A) 2 %; Neutrophils # (A) 6.9 k/uL (1.3-7.7); Neutrophils % (A) 77 %; Platelet Count 166 k/uL (150-450); RBC 3.32 m/uL (4.30-5.90); RDW 13.5 % (11.5-15.5)
[2021-11-20 03:34] LABS: Ionized Calcium 5.1 mg/dL (4.5-5.3)
[2021-11-20 03:44] LABS: ALT 17 U/L (4-49); AST 45 U/L (17-59); African American GFR (CKD) >90 (>60 ml/min/1.73 sqM); Albumin 3.3 g/dL (3.5-5.0); Alkaline Phosphatase 53 U/L (38-126); Anion Gap 4 mmol/L; Blood Urea Nitrogen 18 mg/dL (9-20); Calcium 8.3 mg/dL (8.4-10.2); Carbon Dioxide 27 mmol/L (22-30); Chloride 105 mmol/L (98-107); Glucose 117 mg/dL (74-99); Magnesium 2.1 mg/dL (1.6-2.3); Non-African American GFR(CKD) >90 (>60 ml/min/1.73 sqM); Potassium 4.4 mmol/L (3.5-5.1); Sodium 136 mmol/L (137-145); Total Protein 5.4 g/dL (6.3-8.2)
[2021-11-20 05:49] LABS: Glucose,Whole Blood 134 mg/dL (75-99)
[2021-11-20] MEDS: PANTOPRAZOLE 40 MG TABLET PO SCH (05:49)
[2021-11-20] MEDS: KETOROLAC 15 MG/ML 1 ML VIAL IVP SCH ×4 (05:49→23:26)
[2021-11-20] MEDS: INSULIN ASPART (NovoLOG) 100 UNIT/ML VIAL SQ SCH ×4 (05:51→21:15)
[2021-11-20] MEDS: ALBUMIN HUMAN 5% 250 ML in EMPTY BAG 1 BAG IVPB PRN (06:24)
[2021-11-20] MEDS: IPRATROPIUM-ALBUTEROL 3 ML NEB INHALATION SCH ×4 (07:52→20:08)
--- NOTE | 2021-11-20 07:53 | P.PN ---
Subjective Progress Note Date: 11/20/21 Principal diagnosis: Coronary artery disease. Previous medical history of coronary artery disease with unstable angina and previous PCI, hypertension, hyperlipidemia, peripheral arterial disease, previous tobacco dependence, GERD, prediabetes. Patient is vaccinated against covid POD #2 off-pump coronary artery bypass graft 3 with left internal mammary artery to the left anterior descending artery, free right internal mammary artery T graft off the left internal mammary artery to the obtuse marginal #2, reverse greater saphenous vein graft to the posterior descending artery with endovascular vein harvest and ligation of the left atrial appendage with a 35 mm AtriCure clip, intraoperative transesophageal echocardiogram pre-and postoperatively performed by anesthesia Postoperative acute blood loss anemia, expected given hemodilution The patient was seen and examined this morning sitting up in a recliner in the intensive care unit in no acute distress. He does complain of post surgical pain, denies shortness of breath. Remains in sinus rhythm with marginal blood pressure. Actively using incentive spirometer and achieving 750-1000 mL. Patient did ambulate out to the hallway twice yesterday and once this morning already. Right internal jugular Cordis, right radial arterial line, mediastinal/right/left pleural chest tubes all remain. No other new concerns. Objective - Vital Signs Vital signs: Vital Signs Temp 98.4 F 11/20/21 04:00 Pulse 77 11/20/21 07:00 Resp 13 11/20/21 07:00 BP 93/57 11/20/21 07:00 Pulse Ox 97 11/20/21 07:00 Intake & Output 11/19/21 11/20/21 11/20/21 18:59 06:59 18:59 Intake Total 1115.5 432 286 Output Total 530 960 15 Balance 585.5 -528 271 Weight 86.3 kg 86.6 kg Intake: IV 585.5 432 36 LR @ 30ml/hr 490 360 30 Nitro gtt 1.5 cardiac output 10 pressure bags 84 72 6 Intake, IV Titration 50 Amount ceFAZolin 2 gm In Sodium 50 Chloride 0.9% 50 ml @ 100 mls/hr IVPB Q8HR [facility] Rx# :[id number] Oral 480 250 Output: Chest Tube Drainage 190 360 left and right pleural 150 310 medistinal 40 50 Urine 340 600 15 Other: Voiding Method Indwelling Catheter Indwelling Catheter ABP, PAP, CO, CI - Last Documented Arterial Blood Pressure 97/47 Pulmonary Artery Pressure 28/10 Cardiac Output 5.6 Cardiac Index 2.7 - Exam CONSTITUTIONAL: Appears comfortable, cooperative, no acute distress RESPIRATORY: Lungs sounds diminished bilaterally. Respirations even, nonlabored. Currently on 2 L nasal cannula with oxygen saturation 97%. Able to achieve 750-1000 mL on incentive spirometry. Strong cough. CARDIOVASCULAR: S1, S2 present. Regular rate and rhythm, sinus rhythm on telemetry. Sternum stable. Palpable peripheral pulses bilaterally. No edema present. No calf pain or tenderness noted. Heart hugger in place with patient demonstrating appropriate use. Antiembolism stockings, SCDs present. GASTROINTESTINAL: Abdomen soft, nontender, nondistended. Active bowel sounds present 4 quadrants. Tolerating diet. Positive flatus GENITOURINARY: Brown present draining clear, yellow urine. Output overnight 25-40 mL per hour, 940 mL in the last 24 hours INTEGUMENTARY: Skin is warm and dry with evidence of good perfusion. Anterior chest incision well approximated and covered with dry intact dressing. Left lower extremity EVH site well approximated without redness or drainage. NEUROLOGIC: Cranial nerves II through XII intact MUSKULOSKELETAL: Able to move all extremities, strength equal bilaterally PSYCHIATRIC: Alert and oriented to person place and time, appropriate affect, intact judgment and insight INVASIVE LINES AND TUBES: Mediastinal/left/right pleural chest tubes present and connected to wall suction, no air leaks present. Mediastinal tube with 20 mL serosanguineous drainage overnight, 100 mL in the last 24 hours. Left/right pleural chest tubes with 240 mL serosanguineous drainage overnight, 500 mL in the last 24 hours. Right internal jugular Cordis, right radial arterial line present. - Allied health notes Allied health notes reviewed: nursing - Labs CBC & Chem 7: 11/20/21 03:00 11/20/21 03:00 Labs: Abnormal Lab Results - Last 24 Hours (Table) 11/19/21 11/19/21 11/19/21 Range/Units 04:00 10:25 16:50 RBC (4.30-5.90) m/uL Hgb (13.0-17.5) gm/dL Hct (39.0-53.0) % Sodium (137-145) mmol/L Glucose (74-99) mg/dL POC Glucose (mg/dL) 111 H 124 H (75-99) mg/dL Calcium (8.4-10.2) mg/dL Iron 13 L (65-175) ug/dL % Saturation 5.10 L (15.00-50.00) Transferrin 175.0 L (204.0-354.0) mg/dL Total Protein (6.3-8.2) g/dL Albumin (3.5-5.0) g/dL 11/19/21 11/20/21 11/20/21 Range/Units 19:57 03:00 03:00 RBC 3.32 L (4.30-5.90) m/uL Hgb 10.3 L (13.0-17.5) gm/dL Hct 30.6 L (39.0-53.0) % Sodium 136 L (137-145) mmol/L Glucose 117 H (74-99) mg/dL POC Glucose (mg/dL) 117 H (75-99) mg/dL Calcium 8.3 L (8.4-10.2) mg/dL Iron (65-175) ug/dL % Saturation (15.00-50.00) Transferrin (204.0-354.0) mg/dL Total Protein 5.4 L (6.3-8.2) g/dL Albumin 3.3 L (3.5-5.0) g/dL 11/20/21 Range/Units 05:47 RBC (4.30-5.90) m/uL Hgb (13.0-17.5) gm/dL Hct (39.0-53.0) % Sodium (137-145) mmol/L Glucose (74-99) mg/dL POC Glucose (mg/dL) 134 H (75-99) mg/dL Calcium (8.4-10.2) mg/dL Iron (65-175) ug/dL % Saturation (15.00-50.00) Transferrin (204.0-354.0) mg/dL Total Protein (6.3-8.2) g/dL Albumin (3.5-5.0) g/dL - Imaging and Cardiology Chest x-ray: image reviewed Assessment and Plan Assessment: 1. Coronary artery disease, unstable angina with previous PCI, status post three-vessel off-pump CABG 2. Hypertension 3. Hyperlipidemia, treated, cholesterol 107, LDL 47 4. Peripheral arterial disease 5. Previous tobacco dependence, preoperative FEV1 98% of predicted 6. GERD 7. Prediabetes, preoperative hemoglobin 6% 8. Vaccinated against covid 9. Postoperative acute blood loss anemia, expected Plan: 1. Continue aspirin, statin, Plavix, beta irais therapy. Will increase beta irais therapy as tolerated. Will start midodrine for blood pressure 2. Wean O2 as tolerated. Encourage incentive spirometry is 10 times every hour while awake. Bronchodilators per pulmonology 3. Increase activity as tolerated. PT/OT/cardiac rehab consulted 4. Will monitor daily labs and x-rays. Electrolyte replacement per protocol. No lasix today 5. GI/DVT prophylaxis 6. Insulin management per primary care service 7. Will discontinue Cordis, arterial line 8. Pain control with current medication regimen 9. Will discontinue mediastinal chest tube, keep right/left pleural chest tubes for another 24 hours 10. Discontinue Brown catheter, made bladder scan and straight cath for greater than 300 mL residual 11. Strict accurate intake and output. Daily weights 12. Will place transfer orders for 3 S. cardiac stepdown unit. May transfer when bed available 13. More recommendations to follow based on patient's progress
[2021-11-20] MEDS: ATORVASTATIN 40 MG TAB PO SCH (08:45)
[2021-11-20] MEDS: MIDODRINE 5 MG TAB PO SCH ×3 (08:45→17:08)
[2021-11-20] MEDS: HEPARIN SODIUM,PORCINE/PF 5,000 UNIT/0.5 ML SYRINGE SQ SCH ×3 (08:45→23:28)
[2021-11-20] MEDS: METOPROLOL TARTRATE 12.5 MG TAB PO SCH ×3 (08:45→21:42)
[2021-11-20] MEDS: CLOPIDOGREL 75 MG TAB PO SCH (08:45)
[2021-11-20] MEDS: ASPIRIN 325 MG TAB PO SCH (08:45)
--- NOTE | 2021-11-20 09:33 | XR ---
EXAMINATION TYPE: XR chest 1V portable DATE OF EXAM: 11/20/2021 COMPARISON: 11/19/2021 HISTORY: Postop TECHNIQUE: Single frontal view of the chest is obtained. FINDINGS: Bilateral chest tubes and mediastinal drain remain. [place] catheter has been. No sizabl e pneumothorax. Heart enlarged and there is postsurgical changes with bilateral infiltrate and small effusion. No sizable pneumothorax. IMPRESSION: Postoperative change with bilateral atelectasis or infiltrate and small effusion stable.
--- NOTE | 2021-11-20 10:32 | P.PN ---
Subjective Progress Note Date: 11/20/21 Principal diagnosis: off-pump coronary artery bypass graft 3 postoperative day #2 This is a 66-year-old white male with history of coronary artery disease, multiple stents in the past, patient had a recent cardiac catheterization, this was done by Dr. Karthik Nuñez, and he was found to have three-vessel coronary artery disease, with in-stent restenosis of the proximal LAD stent. Patient was advised to undergo CABG, considering the patient lives in [facility], he was referred to Dr. Vasquez, and today he underwent elective off-pump CABG 3 with RAMIREZ to LAD free DEBI T graft off RAMIREZ to obtuse marginal #2, saphenous vein graft to PDA. Postoperatively patient was admitted to the ICU on mechanical ventilation, and I was asked to see him on consultation. Patient is now on assist control mode of mechanical ventilation, rate is set at 12 tidal volume is 500 FiO2 was 100% and I cut it down to 40%, and PEEP at 5. ABG showed a pO2 of more than 400 pCO2 of 49 pH of 7.34 hence his rate was increased to 14 FiO2 down to 40% and no other changes made on his ventilator settings. Patient is sedated, on clevidipine 2 mg/h, on propofol 35 mcg/kg/m on insulin drip at 1 unit per hour nitroglycerin drip. Patient is hemodynamically stable his cardiac index is 3.4. Chest x-ray showed no evidence of acute abnormality endotracheal tube, chest tubes, mediastinal tube are all in proper position. Patient was reevaluated today on 11/19/21, he is now postoperative day #1.off-p ump coronary artery bypass graft 3 with left internal mammary artery to the left anterior descending artery, free right internal mammary artery T graft off the left internal mammary artery to the obtuse marginal #2, reverse greater saphenous vein graft to the posterior descending artery with endovascular vein harvest and ligation of the left atrial appendage with a 35 mm AtriCure clip, intraoperative transesophageal echocardiogram pre-and postoperatively performed by anesthesia. Patient was extubated yesterday x-ray at 16:59. He is now sitting at a bedside chair, he is on 3 L nasal cannula. Doing poorly with incentive spirometry, achieving less than 500 mL. Patient feels weak, but not i n any form of respiratory distress. His right and left sided chest tube drained about 800 mL overnight. Of serosanguineous fluid. And his mediastinal tube drained about 200 mL. Cardiac index today is 2.71. His chest x-ray showed minimal atelectasis, expected considering his surgery. His PA catheter has been removed. Patient is not requiring any inotropes, not requiring any pressors. His IV fluid at 50 mL per hour in the form of LR. Patient is receiving insulin at 2 units per hour Patient was reevaluated today on 11/20/21, patient is now postoperative day #2. Remains hemodynamically stable. Patient does not seem to be in any distress. He is doing well with incentive spirometry up to 1000 mL, chest tubes remain in place. Chest x-ray is reassuring. Patient was started on midodrine for low blood pressure. And his blood pressure seems to be holding nicely at present. Mediastinal chest tube has been removed. The right IJ Cordis has been removed. Patient is in sinus rhythm. And he is not requiring any pressors or any inotropes. Minimal surgical pain, no shortness of breath. CBC is unremarkable hemoglobin is 10.3. Electrolytes are normal renal profile is normal Objective - Vital Signs Vital signs: Vital Signs Temp 98.4 F 11/20/21 04:00 Pulse 74 11/20/21 08:01 Resp 13 11/20/21 07:00 BP 93/57 11/20/21 07:00 Pulse Ox 97 11/20/21 07:00 Intake & Output 11/19/21 11/20/21 11/20/21 18:59 06:59 18:59 Intake Total 1115.5 432 286 Output Total 530 960 15 Balance 585.5 -528 271 Weight 86.3 kg 86.6 kg Intake: IV 585.5 432 36 LR @ 30ml/hr 490 360 30 Nitro gtt 1.5 cardiac output 10 pressure bags 84 72 6 Intake, IV Titration 50 Amount ceFAZolin 2 gm In Sodium 50 Chloride 0.9% 50 ml @ 100 mls/hr IVPB Q8HR [facility] Rx# :[id number] Oral 480 250 Output: Chest Tube Drainage 190 360 left and right pleural 150 310 medistinal 40 50 Urine 340 600 15 Other: Voiding Method Indwelling Catheter Indwelling Catheter ABP, PAP, CO, CI - Last Documented Arterial Blood Pressure 97/47 Pulmonary Artery Pressure 28/10 Cardiac Output 5.6 Cardiac Index 2.7 - Exam CONSTITUTIONAL: Revealed 66-year-old white male in no distress. On 2 L nasal cannula. RESPIRATORY: Symmetrical chest expansion, diminished breath sounds at the bases, no rhonchi and no wheezes. CARDIOVASCULAR: Normal S1 and S2, no S3 gallop,, sternum remains stable. GASTROINTESTINAL: Soft nontender no megaly no rebound no guarding. INTEGUMENTARY: No rashes, anterior chest incision is intact. NEUROLOGIC: Alert and oriented 3 no gross focal deficits. MUSKULOSKELETAL: No deformities and no limitation in range of motion PSYCHIATRIC: Normal mood, affect and normal mental status examination. - Labs CBC & Chem 7: 11/20/21 03:00 11/20/21 03:00 Labs: Abnormal Lab Results - Last 24 Hours (Table) 11/19/21 11/19/21 11/19/21 Range/Units 10:25 16:50 19:57 RBC (4.30-5.90) m/uL Hgb (13.0-17.5) gm/dL Hct (39.0-53.0) % Sodium (137-145) mmol/L Glucose (74-99) mg/dL POC Glucose (mg/dL) 111 H 124 H 117 H (75-99) mg/dL Calcium (8.4-10.2) mg/dL Total Protein (6.3-8.2) g/dL Albumin (3.5-5.0) g/dL 11/20/21 11/20/21 11/20/21 Range/Units 03:00 03:00 05:47 RBC 3.32 L (4.30-5.90) m/uL Hgb 10.3 L (13.0-17.5) gm/dL Hct 30.6 L (39.0-53.0) % Sodium 136 L (137-145) mmol/L Glucose 117 H (74-99) mg/dL POC Glucose (mg/dL) 134 H (75-99) mg/dL Calcium 8.3 L (8.4-10.2) mg/dL Total Protein 5.4 L (6.3-8.2) g/dL Albumin 3.3 L (3.5-5.0) g/dL Assessment and Plan Assessment: Impression: Status post off-pump CABG 3, postoperative day 2 History of triple-vessel coronary artery disease Benign essential hypertension Peripheral vessel occlusive disease Ex-smoker, patient quit smoking in May he had a [id number] smoking history. Postoperative atelectasis, expected Acute blood loss anemia, expected. Recommendation: Continue incentive spirometry Continue aspirin statins and Plavix and beta blockers Start ambulating the patient Brown catheter and a right IJ cordis has been removed mediastinal chest tube has been removed Continue GI and DVT prophylaxis We'll continue to follow. Time with Patient: Less than 30
--- NOTE | 2021-11-20 11:20 | P.PN ---
Subjective Progress Note Date: 11/20/21 Patient is a 66-year-old male with coronary artery disease status post multiple stenting, GERD, HTN, and HLD who presented for elective off-pump CABG 3. Patient denying any acute complaints. Patient states that he walked in the hallways. Patient had tenderness chest tubes removed. I discussed the case with the CUT OUT WORKER from CT surgery. Also discussed with ICU nurse. Objective - Vital Signs Vital signs: Vital Signs Temp 98.4 F 11/20/21 04:00 Pulse 74 11/20/21 08:01 Resp 13 11/20/21 07:00 BP 93/57 11/20/21 07:00 Pulse Ox 97 11/20/21 07:00 Intake & Output 11/19/21 11/20/21 11/20/21 18:59 06:59 18:59 Intake Total 1115.5 432 286 Output Total 530 960 15 Balance 585.5 -528 271 Weight 86.3 kg 86.6 kg Intake: IV 585.5 432 36 LR @ 30ml/hr 490 360 30 Nitro gtt 1.5 cardiac output 10 pressure bags 84 72 6 Intake, IV Titration 50 Amount ceFAZolin 2 gm In Sodium 50 Chloride 0.9% 50 ml @ 100 mls/hr IVPB Q8HR [facility] Rx# :[id number] Oral 480 250 Output: Chest Tube Drainage 190 360 left and right pleural 150 310 medistinal 40 50 Urine 340 600 15 Other: Voiding Method Indwelling Catheter Indwelling Catheter ABP, PAP, CO, CI - Last Documented Arterial Blood Pressure 97/47 Pulmonary Artery Pressure 28/10 Cardiac Output 5.6 Cardiac Index 2.7 - Exam General examination - Alert and Oriented 3 in NAD Heart - + S1S2 no murmurs Lungs - Clear to auscultation, chest brace on, + chest tube Abdomen soft NT ND +ve BS Extremities - No edema 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 Psych - Calm and cooperative - Labs CBC & Chem 7: 11/20/21 03:00 11/20/21 03:00 Labs: Abnormal Lab Results - Last 24 Hours (Table) 11/19/21 11/19/21 11/20/21 Range/Units 16:50 19:57 03:00 RBC (4.30-5.90) m/uL Hgb (13.0-17.5) gm/dL Hct (39.0-53.0) % Sodium 136 L (137-145) mmol/L Glucose 117 H (74-99) mg/dL POC Glucose (mg/dL) 124 H 117 H (75-99) mg/dL Calcium 8.3 L (8.4-10.2) mg/dL Total Protein 5.4 L (6.3-8.2) g/dL Albumin 3.3 L (3.5-5.0) g/dL 11/20/21 11/20/21 Range/Units 03:00 05:47 RBC 3.32 L (4.30-5.90) m/uL Hgb 10.3 L (13.0-17.5) gm/dL Hct 30.6 L (39.0-53.0) % Sodium (137-145) mmol/L Glucose (74-99) mg/dL POC Glucose (mg/dL) 134 H (75-99) mg/dL Calcium (8.4-10.2) mg/dL Total Protein (6.3-8.2) g/dL Albumin (3.5-5.0) g/dL Assessment and Plan Assessment: Patient is a 66-year-old male status post triple vessel bypass therapy -Management as per primary team -Patient encouraged to use incentive spirometry -Patient is on aspirin and statin and Plavix and beta blockers Acute blood loss anemia -Anticipated outcome of surgery -Hemoglobin stable this morning Prediabetes - Outpatient A1C pre op was 6 -Transition patient from insulin drip to sliding scale insulin. -Blood glucose is controlled -At this point patient will not need any diabetic medications on discharge. We'll continue to monitor patient blood glucose while inpatient Hypomagnesemia -Replete as needed Hypertension -Management per primary team Dyslipidemia - Crestor Thank you for allowing us to participate in the care of this pleasant patient. Do not hesitate to contact us with questions. Someone can be reached from the [facility] hospitalist group all hours of the day at [phone] or via perfect serve.
[2021-11-20 11:33] LABS: Glucose,Whole Blood 137 mg/dL (75-99)
[2021-11-20 17:02] LABS: Glucose,Whole Blood 125 mg/dL (75-99)
[2021-11-20] MEDS: LACTATED RINGERS 1,000 ML IV SCH (17:58)
[2021-11-20 20:42] LABS: Glucose,Whole Blood 111 mg/dL (75-99)
[2021-11-20] MEDS: PRAMIPEXOLE 1 MG TAB PO SCH (21:42)
[2021-11-20] MEDS: SENNOSIDES-DOCUSATE SODIUM 1 EACH TAB PO SCH (21:42)
[2021-11-21] MEDS: AMIODARONE 360 MG in DEXTROSE 5% IN WATER 200 ML IV PRN ×4 (02:20→04:00)
[2021-11-21] MEDS ORDERED: DEXTROSE 5% IN WATER 100 ML with AMIODARONE 150 MG IV ONE ×2 (03:12→05:45)
[2021-11-21] MEDS: KETOROLAC 15 MG/ML 1 ML VIAL IVP SCH ×2 (05:44→11:42)
[2021-11-21 06:25] LABS: Glucose,Whole Blood 153 mg/dL (75-99)
[2021-11-21] MEDS: PANTOPRAZOLE 40 MG TABLET PO SCH (06:32)
[2021-11-21] MEDS: MIDODRINE 5 MG TAB PO SCH ×3 (06:32→17:07)
[2021-11-21] MEDS: INSULIN ASPART (NovoLOG) 100 UNIT/ML VIAL SQ SCH ×4 (06:32→21:58)
--- NOTE | 2021-11-21 06:47 | XR ---
EXAMINATION TYPE: XR chest 1V portable DATE OF EXAM: 11/21/2021 CLINICAL HISTORY: Difficulty breathing progress study. Post-CABG. TECHNIQUE: Single AP portable upright view of the chest is obtained. COMPARISON: Chest x-ray from one day earlier and older studies. FINDINGS: Persistent bibasilar chest tubes. Interval removal of mediastinal drainage catheter and ri ght internal jugular cordis sheath. Overlying sternal wires and mediastinal clips along with left atrial appendage clip all redemonstrate d. Stable mild cardiomegaly with bibasilar opacities. No pneumothorax seen bilaterally. Osseous structur es are intact. IMPRESSION: Mild cardiomegaly with bibasilar acute infiltrate and/or atelectasis and likely small to tiny bilateral pleural fluid collections are all redemonstrated. No significant change from one day e
[2021-11-21] MEDS: IPRATROPIUM-ALBUTEROL 3 ML NEB INHALATION SCH ×4 (07:40→19:44)
[2021-11-21 07:51] LABS: Basophils % (A) 0 %; Eosinophils # (A) 0.4 k/uL (0-0.7); Eosinophils % (A) 5 %; HCT 31.6 % (39.0-53.0); HGB 10.2 gm/dL (13.0-17.5); Lymphocytes # (A) 1.2 k/uL (1.0-4.8); Lymphocytes % (A) 14 %; MCH 30.4 pg (25.0-35.0); MCHC 32.4 g/dL (31.0-37.0); MCV 93.9 fL (80.0-100.0); Mean Platelet Volume 7.8; Monocytes # (A) 0.4 k/uL (0-1.0); Monocytes % (A) 4 %; Neutrophils # (A) 6.8 k/uL (1.3-7.7); Neutrophils % (A) 76 %; Platelet Count 173 k/uL (150-450); RBC 3.36 m/uL (4.30-5.90); RDW 12.7 % (11.5-15.5); WBC 8.9 k/uL (3.8-10.6)
[2021-11-21 08:00] LABS: ALT 20 U/L (4-49); AST 53 U/L (17-59); African American GFR (CKD) >90 (>60 ml/min/1.73 sqM); Albumin 3.3 g/dL (3.5-5.0); Alkaline Phosphatase 55 U/L (38-126); Anion Gap 4 mmol/L; Blood Urea Nitrogen 18 mg/dL (9-20); Calcium 8.6 mg/dL (8.4-10.2); Carbon Dioxide 28 mmol/L (22-30); Chloride 104 mmol/L (98-107); Glucose 122 mg/dL (74-99); Non-African American GFR(CKD) >90 (>60 ml/min/1.73 sqM); Potassium 4.3 mmol/L (3.5-5.1); Sodium 136 mmol/L (137-145); Total Protein 5.7 g/dL (6.3-8.2)
[2021-11-21] MEDS: HYDROcodone/APAP 7.5-325MG 1 EACH TAB PO PRN (09:26)
[2021-11-21] MEDS: METOPROLOL TARTRATE 25 MG TAB PO SCH ×2 (09:27→21:57)
[2021-11-21] MEDS: HEPARIN SODIUM,PORCINE/PF 5,000 UNIT/0.5 ML SYRINGE SQ SCH ×2 (09:27→17:07)
[2021-11-21] MEDS: ATORVASTATIN 40 MG TAB PO SCH (09:27)
[2021-11-21] MEDS: CLOPIDOGREL 75 MG TAB PO SCH (09:27)
[2021-11-21] MEDS: ASPIRIN 325 MG TAB PO SCH (09:27)
[2021-11-21] MEDS ORDERED: polyethylene glycoL 3350 17 GM POWD.PACK PO STA (09:54)
[2021-11-21] MEDS: AMIODARONE 200 MG TAB PO SCH ×2 (09:57→21:57)
[2021-11-21] MEDS ORDERED: FUROSEMIDE 10 MG/ML 2 ML VIAL IV ONE (10:04)
--- NOTE | 2021-11-21 11:05 | P.PN ---
Subjective Progress Note Date: 11/21/21 Principal diagnosis: Coronary artery disease. Previous medical history of coronary artery disease with unstable angina and previous PCI, hypertension, hyperlipidemia, peripheral arterial disease, previous tobacco dependence, GERD, prediabetes. Patient is vaccinated against covid POD #3 off-pump coronary artery bypass graft 3 with left internal mammary artery to the left anterior descending artery, free right internal mammary artery T graft off the left internal mammary artery to the obtuse marginal #2, reverse greater saphenous vein graft to the posterior descending artery with endovascular vein harvest and ligation of the left atrial appendage with a 35 mm AtriCure clip, intraoperative transesophageal echocardiogram pre-and postoperatively performed by anesthesia Postoperative acute blood loss anemia, expected given hemodilution Paroxysmal atrial fibrillation, known common occurrence after open heart surgery The patient was seen and examined this morning sitting up in a recliner and the cardiac stepdown unit in no acute distress. He does complain of post surgical pain but states it is controlled with current medication regimen, denies shortness of breath. Currently in sinus rhythm, did have atrial fibrillation for a few hours last night which was responsive to IV amiodarone. Actively using incentive spirometer and achieving 750-1000 mL. Patient did ambulate out in the hallway 3 times yesterday. Right/left pleural chest tubes remain. No other new concerns. Objective - Vital Signs Vital signs: Vital Signs Temp 97.7 F 11/21/21 08:00 Pulse 74 11/21/21 08:00 Resp 16 11/21/21 08:00 BP 104/71 11/21/21 08:00 Pulse Ox 95 11/21/21 08:00 Intake & Output 11/20/21 11/21/21 11/21/21 18:59 06:59 18:59 Intake Total 830 10 120 Output Total 422 1550 Balance 408 -1540 120 Weight 86.4 kg Intake: IV 162 10 Invasive Line 4 10 LR @ 30ml/hr 150 pressure bags 12 Oral 668 120 Output: Chest Tube Drainage 80 300 left pleural 35 155 right pleural 45 145 Urine 342 1250 Other: Voiding Method Indwelling Catheter Urinal # Voids 1 ABP, PAP, CO, CI - Last Documented Arterial Blood Pressure 97/47 Pulmonary Artery Pressure 28/10 Cardiac Output 5.6 Cardiac Index 2.7 - Exam CONSTITUTIONAL: Appears comfortable, cooperative, no acute distress RESPIRATORY: Lungs sounds diminished bilaterally. Respirations even, nonlabored. Currently on 2 L nasal cannula with oxygen saturation 95%. Able to achieve 750-1000 mL on incentive spirometry. Strong cough. CARDIOVASCULAR: S1, S2 present. Regular rate and rhythm, sinus rhythm on telemetry. Sternum stable. Palpable peripheral pulses bilaterally. No edema present. No calf pain or tenderness noted. Heart hugger in place with patient demonstrating appropriate use. Antiembolism stockings, SCDs present. GASTROINTESTINAL: Abdomen soft, nontender, nondistended. Active bowel sounds present 4 quadrants. Tolerating diet. Positive flatus GENITOURINARY: Brown discontinued, patient continues to void INTEGUMENTARY: Skin is warm and dry with evidence of good perfusion. Anterior chest incision well approximated and covered with dry intact dressing. Left lower extremity EVH site well approximated without redness or drainage. NEUROLOGIC: Cranial nerves II through XII intact MUSKULOSKELETAL: Able to move all extremities, strength equal bilaterally PSYCHIATRIC: Alert and oriented to person place and time, appropriate affect, intact judgment and insight INVASIVE LINES AND TUBES: Left/right pleural chest tubes present and connected to wall suction, no air leaks present. Left pleural chest tube with 80 mL serosanguineous drainage overnight, 250 mL in the last 24 hours. Right pleural chest tube with 85 mL serosanguineous drainage overnight, 250 mL in the last 24 hours. - Allied health notes Allied health notes reviewed: nursing - Labs CBC & Chem 7: 11/21/21 07:12 11/21/21 07:12 Labs: Abnormal Lab Results - Last 24 Hours (Table) 11/20/21 11/20/21 11/20/21 Range/Units 11:31 16:52 20:40 RBC (4.30-5.90) m/uL Hgb (13.0-17.5) gm/dL Hct (39.0-53.0) % Sodium (137-145) mmol/L Glucose (74-99) mg/dL POC Glucose (mg/dL) 137 H 125 H 111 H (75-99) mg/dL Total Protein (6.3-8.2) g/dL Albumin (3.5-5.0) g/dL 11/21/21 11/21/21 11/21/21 Range/Units 06:16 07:12 07:12 RBC 3.36 L (4.30-5.90) m/uL Hgb 10.2 L (13.0-17.5) gm/dL Hct 31.6 L (39.0-53.0) % Sodium 136 L (137-145) mmol/L Glucose 122 H (74-99) mg/dL POC Glucose (mg/dL) 153 H (75-99) mg/dL Total Protein 5.7 L (6.3-8.2) g/dL Albumin 3.3 L (3.5-5.0) g/dL - Imaging and Cardiology Chest x-ray: report reviewed, image reviewed Assessment and Plan Assessment: 1. Coronary artery disease, unstable angina with previous PCI, status post three-vessel off-pump CABG 2. Hypertension 3. Hyperlipidemia, treated, cholesterol 107, LDL 47 4. Peripheral arterial disease 5. Previous tobacco dependence, preoperative FEV1 98% of predicted 6. GERD 7. Prediabetes, preoperative hemoglobin 6% 8. Vaccinated against covid 9. Postoperative acute blood loss anemia, expected 10. Paroxysmal atrial fibrillation, currently sinus Plan: 1. Continue aspirin, statin, Plavix, beta irais therapy. Will increase beta irais therapy as tolerated, increased to 25 mg twice daily today. Continue midodrine for blood pressure 2. Continue amiodarone for A. fib prophylaxis, will transition to oral. No anticoagulation unless in atrial fibrillation greater than 24 hours 3. Wean O2 as tolerated. Encourage incentive spirometry is 10 times every hour while awake. Bronchodilators per pulmonology 4. Increase activity as tolerated. PT/OT/cardiac rehab consulted 5. Will monitor daily labs and x-rays. Electrolyte replacement per protocol. Will give 20 mg IV push Lasix today 6. GI/DVT prophylaxis 7. Insulin management per primary care service 8. Pain control with current medication regimen 9. Will discontinue pleural chest tubes 10. Strict accurate intake and output. Daily weights 11. More recommendations to follow based on patient's progress
--- NOTE | 2021-11-21 11:30 | P.PN ---
Subjective Progress Note Date: 11/21/21 Patient is a 66-year-old male with coronary artery disease status post multiple stenting, GERD, HTN, and HLD who presented for elective off-pump CABG 3. Patient is seen in the stepdown unit. He was sitting in the chair. He denies any complaints. He states that he spoke to the MP from CT surgery who said the plan is to remove his chest tubes. Objective - Vital Signs Vital signs: Vital Signs Temp 97.7 F 11/21/21 08:00 Pulse 74 11/21/21 08:00 Resp 16 11/21/21 08:00 BP 104/71 11/21/21 08:00 Pulse Ox 95 11/21/21 08:00 Intake & Output 11/20/21 11/21/21 11/21/21 18:59 06:59 18:59 Intake Total 830 10 120 Output Total 422 1550 Balance 408 -1540 120 Weight 86.4 kg Intake: IV 162 10 Invasive Line 4 10 LR @ 30ml/hr 150 pressure bags 12 Oral 668 120 Output: Chest Tube Drainage 80 300 left pleural 35 155 right pleural 45 145 Urine 342 1250 Other: Voiding Method Indwelling Catheter Urinal # Voids 1 ABP, PAP, CO, CI - Last Documented Arterial Blood Pressure 97/47 Pulmonary Artery Pressure 28/10 Cardiac Output 5.6 Cardiac Index 2.7 - Exam General examination - Alert and Oriented 3 in NAD Heart - + S1S2 no murmurs Lungs - Clear to auscultation, chest brace on, + chest tube Abdomen soft NT ND +ve BS Extremities - No edema 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 Psych - Calm and cooperative - Labs CBC & Chem 7: 11/21/21 07:12 11/21/21 07:12 Labs: Abnormal Lab Results - Last 24 Hours (Table) 11/20/21 11/20/21 11/20/21 Range/Units 11:31 16:52 20:40 RBC (4.30-5.90) m/uL Hgb (13.0-17.5) gm/dL Hct (39.0-53.0) % Sodium (137-145) mmol/L Glucose (74-99) mg/dL POC Glucose (mg/dL) 137 H 125 H 111 H (75-99) mg/dL Total Protein (6.3-8.2) g/dL Albumin (3.5-5.0) g/dL 11/21/21 11/21/21 11/21/21 Range/Units 06:16 07:12 07:12 RBC 3.36 L (4.30-5.90) m/uL Hgb 10.2 L (13.0-17.5) gm/dL Hct 31.6 L (39.0-53.0) % Sodium 136 L (137-145) mmol/L Glucose 122 H (74-99) mg/dL POC Glucose (mg/dL) 153 H (75-99) mg/dL Total Protein 5.7 L (6.3-8.2) g/dL Albumin 3.3 L (3.5-5.0) g/dL Assessment and Plan Assessment: Patient is a 66-year-old male status post triple vessel bypass therapy -Management as per primary team -Patient encouraged to use incentive spirometry -Patient is on aspirin and statin and Plavix and beta blockers A. fib with RVR -Patient currently on IV amiodarone -CT surgery managing -CT surgery no need for anticoagulation unless more than 24 hours Acute blood loss anemia -Anticipated outcome of surgery -Hemoglobin stable this morning Prediabetes - Outpatient A1C pre op was 6 -Transition patient from insulin drip to sliding scale insulin. -Blood glucose is controlled -At this point patient will not need any diabetic medications on discharge. We'll continue to monitor patient blood glucose while inpatient Hypomagnesemia -Replete as needed Hypertension -Management per primary team Dyslipidemia - Crestor Thank you for allowing us to participate in the care of this pleasant patient. Do not hesitate to contact us with questions. Someone can be reached from the [facility] hospitalist group all hours of the day at [phone] or via [employer].
[2021-11-21 11:42] LABS: Glucose,Whole Blood 111 mg/dL (75-99)
--- NOTE | 2021-11-21 13:02 | P.PN ---
Subjective Progress Note Date: 11/21/21 Principal diagnosis: Off-pump coronary artery bypass grafting surgery 3, postoperative day #3 On 11/21/2021 patient seen in follow-up on selective care unit, today is postoperative day #3, status post three-vessel off-pump coronary artery bypass grafting surgery. He is breathing comfortably today, he is currently on just 2 L of oxygen and pulse ox is 93-96%, afebrile, he is currently in sinus mechanism, he remains on amiodarone drip at 0.5 milligrams per minute. He is on 0.9 normal saline at 10 ML per hour, he still has right and left pleural chest tubes in place with small amount of thin serosanguineous output. Incentive spirometer effort is 1000. Today's chest x-ray showing mild cardiomegaly with bibasilar acute infiltrate and small to tiny bilateral pleural effusion fluid collections Objective - Vital Signs Vital signs: Vital Signs Temp 97.6 F 11/21/21 12:00 Pulse 67 11/21/21 12:00 Resp 16 11/21/21 12:00 BP 118/78 11/21/21 12:00 Pulse Ox 93 L 11/21/21 12:17 Intake & Output 11/20/21 11/21/21 11/21/21 18:59 06:59 18:59 Intake Total 830 10 120 Output Total 422 1550 0 Balance 408 -1540 120 Weight 86.4 kg Intake: IV 162 10 Invasive Line 4 10 LR @ 30ml/hr 150 pressure bags 12 Oral 668 120 Output: Chest Tube Drainage 80 300 left pleural 35 155 right pleural 45 145 Urine 342 1250 0 Stool 0 Urine/Stool Mix 0 Other: Voiding Method Indwelling Catheter Urinal # Voids 1 0 # Bowel Movements 0 ABP, PAP, CO, CI - Last Documented Arterial Blood Pressure 97/47 Pulmonary Artery Pressure 28/10 Cardiac Output 5.6 Cardiac Index 2.7 - Exam GENERAL EXAM: Alert, very pleasant, 66-year-old white male, on 2 L of oxygen comfortable in no apparent distress. HEAD: Normocephalic/atraumatic. EYES: Normal reaction of pupils, equal size. Conjunctiva pink, sclera white. NOSE: Clear with pink turbinates. THROAT: No erythema or exudates. NECK: No masses, no JVD, no thyroid enlargement, no adenopathy. CHEST: No chest wall deformity. Symmetrical expansion. Midsternal incision is clean dry and intact right and left pleural chest tubes in place with small amount of thin serosanguineous output LUNGS: Equal air entry with no crackles, wheeze, rhonchi or dullness. CVS: Regular rate and rhythm, normal S1 and S2, no gallops, no murmurs, no rubs ABDOMEN: Soft, nontender. No hepatosplenomegaly, normal bowel sounds, no guarding or rigidity. EXTREMITIES: No clubbing, no edema, no cyanosis, 2+ pulses and upper and lower extremities. MUSCULOSKELETAL: Muscle strength and tone normal. SPINE: No scoliosis or deformity SKIN: No rashes CENTRAL NERVOUS SYSTEM: Alert and oriented -3. No focal deficits, tone is normal in all 4 extremities. PSYCHIATRIC: Alert and oriented -3. Appropriate affect. Intact judgment and insight. - Labs CBC & Chem 7: 11/21/21 07:12 11/21/21 07:12 Labs: Abnormal Lab Results - Last 24 Hours (Table) 11/20/21 11/20/21 11/21/21 Range/Units 16:52 20:40 06:16 RBC (4.30-5.90) m/uL Hgb (13.0-17.5) gm/dL Hct (39.0-53.0) % Sodium (137-145) mmol/L Glucose (74-99) mg/dL POC Glucose (mg/dL) 125 H 111 H 153 H (75-99) mg/dL Total Protein (6.3-8.2) g/dL Albumin (3.5-5.0) g/dL 11/21/21 11/21/21 11/21/21 Range/Units 07:12 07:12 11:41 RBC 3.36 L (4.30-5.90) m/uL Hgb 10.2 L (13.0-17.5) gm/dL Hct 31.6 L (39.0-53.0) % Sodium 136 L (137-145) mmol/L Glucose 122 H (74-99) mg/dL POC Glucose (mg/dL) 111 H (75-99) mg/dL Total Protein 5.7 L (6.3-8.2) g/dL Albumin 3.3 L (3.5-5.0) g/dL Assessment and Plan Plan: Assessment: #1. Coronary artery disease status post off-pump CABG 3, postoperative day #3 #2. History of triple-vessel coronary artery disease #3. Benign essential hypertension #4. Peripheral vessel occlusive disease #5. Ex-smoker #6. Postoperative atelectasis, expected #7. Acute blood loss anemia, expected Plan: Patient received a dose of IV Lasix per CT surgery Breathing comfortably Continue encouraging deep breathing and coughing Today's chest x-ray has been reviewed Encourage ambulation Continue aspirin and Plavix continue beta blockers Patient is currently back in sinus mechanism Chest tube management per CT surgery Continues on GI and DVT prophylaxis I have personally seen and examined the patient, performed the documentation and the assessment and plan as written. Number of minutes spent on the visit: [10] Time with Patient: Less than 30
[2021-11-21 16:17] LABS: Glucose,Whole Blood 110 mg/dL (75-99)
[2021-11-21] MEDS: PRAMIPEXOLE 1 MG TAB PO SCH (21:57)
[2021-11-21] MEDS: SENNOSIDES-DOCUSATE SODIUM 1 EACH TAB PO SCH (21:57)
[2021-11-22] MEDS: HEPARIN SODIUM,PORCINE/PF 5,000 UNIT/0.5 ML SYRINGE SQ SCH ×3 (00:39→16:47)
[2021-11-22] MEDS: INSULIN ASPART (NovoLOG) 100 UNIT/ML VIAL SQ SCH ×4 (06:51→20:43)
[2021-11-22 06:52] LABS: Glucose,Whole Blood 109 mg/dL (75-99)
[2021-11-22] MEDS: PANTOPRAZOLE 40 MG TABLET PO SCH (06:52)
[2021-11-22] MEDS: MIDODRINE 5 MG TAB PO SCH ×3 (06:52→16:48)
--- NOTE | 2021-11-22 07:12 | XR ---
EXAMINATION TYPE: XR chest 2V DATE OF EXAM: 11/22/2021 6:41 AM COMPARISON:Chest radiograph from one day prior. TECHNIQUE: XR chest 2V Frontal and lateral views of the chest. CLINICAL INDICATION:Male, 66 years old with history of Post open heart surgery; FINDINGS: Lungs/Pleura: Blunting of bilateral costophrenic angles. Opacities projecting over the heart are unch anged from prior. No evidence of pneumothorax. Pulmonary vascularity: Unremarkable. Heart/mediastinum: Cardiomediastinal silhouette is unremarkable. Musculoskeletal: No acute osseous pathology. Midline sternotomy wires are noted and stable. Other findings: None Lines/Tubes: Removal of prior left thoracotomy tube. IMPRESSION: Removal of left thoracotomy tube with small bilateral pleural fusions.
[2021-11-22] MEDS: IPRATROPIUM-ALBUTEROL 3 ML NEB INHALATION SCH ×4 (07:57→19:53)
--- NOTE | 2021-11-22 08:09 | P.PN ---
Subjective Progress Note Date: 11/22/21 Principal diagnosis: Coronary artery disease. Previous medical history of coronary artery disease with unstable angina and previous PCI, hypertension, hyperlipidemia, peripheral arterial disease, previous tobacco dependence, GERD, prediabetes. Patient is vaccinated against covid POD #4 off-pump coronary artery bypass graft 3 with left internal mammary artery to the left anterior descending artery, free right internal mammary artery T graft off the left internal mammary artery to the obtuse marginal #2, reverse greater saphenous vein graft to the posterior descending artery with endovascular vein harvest and ligation of the left atrial appendage with a 35 mm AtriCure clip, intraoperative transesophageal echocardiogram pre-and postoperatively performed by anesthesia Postoperative acute blood loss anemia, expected given hemodilution Paroxysmal atrial fibrillation, known common occurrence after open heart surgery The patient was seen and examined this morning sitting up in a recliner and the cardiac stepdown unit in no acute distress. States pain is better controlled now that chest tubes are out, has had no narcotics for 24 hours. Denies shortness of breath. Remains in sinus rhythm with no further episodes of atrial fibrillation. Actively using incentive spirometer and achieving 1250 mL. Patient did ambulate out in the hallway 2 times yesterday. No other new concerns. Objective - Vital Signs Vital signs: Vital Signs Temp 97.7 F 11/22/21 00:00 Pulse 75 11/22/21 07:57 Resp 16 11/22/21 04:00 BP 112/64 11/22/21 04:00 Pulse Ox 95 11/22/21 07:57 Intake & Output 11/21/21 11/22/21 11/22/21 18:59 06:59 18:59 Intake Total 360 10 Output Total 100 400 250 Balance 260 -390 -250 Intake: IV 10 Invasive Line 5 10 Oral 360 Output: Urine 100 400 250 Stool 0 Urine/Stool Mix 0 Other: Voiding Method Urinal # Voids 0 # Bowel Movements 0 ABP, PAP, CO, CI - Last Documented Arterial Blood Pressure 97/47 Pulmonary Artery Pressure 28/10 Cardiac Output 5.6 Cardiac Index 2.7 - Exam CONSTITUTIONAL: Appears comfortable, cooperative, no acute distress RESPIRATORY: Lungs sounds diminished bilaterally. Respirations even, nonlabored. Currently on 2 L nasal cannula with oxygen saturation 93%. Able to achieve 1250 mL on incentive spirometry. Strong cough. CARDIOVASCULAR: S1, S2 present. Regular rate and rhythm, sinus rhythm on telemetry. Sternum stable. Palpable peripheral pulses bilaterally. No edema present. No calf pain or tenderness noted. Heart hugger in place with patient demonstrating appropriate use. Antiembolism stockings, SCDs present. GASTROINTESTINAL: Abdomen soft, nontender, nondistended. Active bowel sounds present 4 quadrants. Tolerating diet. Positive flatus GENITOURINARY: Continues to void INTEGUMENTARY: Skin is warm and dry with evidence of good perfusion. Anterior chest incision well approximated and covered with dry intact dressing. Left lower extremity EVH site well approximated without redness or drainage. NEUROLOGIC: Cranial nerves II through XII intact MUSKULOSKELETAL: Able to move all extremities, strength equal bilaterally PSYCHIATRIC: Alert and oriented to person place and time, appropriate affect, intact judgment and insight - Allied health notes Allied health notes reviewed: nursing - Labs CBC & Chem 7: 11/21/21 07:12 11/21/21 07:12 Labs: Abnormal Lab Results - Last 24 Hours (Table) 11/21/21 11/21/21 11/22/21 Range/Units 11:41 16:16 06:51 POC Glucose (mg/dL) 111 H 110 H 109 H (75-99) mg/dL - Imaging and Cardiology Chest x-ray: report reviewed, image reviewed Assessment and Plan Assessment: 1. Coronary artery disease, unstable angina with previous PCI, status post three-vessel off-pump CABG 2. Hypertension 3. Hyperlipidemia, treated, cholesterol 107, LDL 47 4. Peripheral arterial disease 5. Previous tobacco dependence, preoperative FEV1 98% of predicted 6. GERD 7. Prediabetes, preoperative hemoglobin 6% 8. Vaccinated against covid 9. Postoperative acute blood loss anemia, expected 10. Paroxysmal atrial fibrillation, currently sinus, status post left atrial appendage ligation Plan: 1. Continue aspirin, statin, Plavix, beta irais therapy. Will increase beta irais therapy as tolerated. Continue midodrine for blood pressure 2. Continue amiodarone for A. fib prophylaxis. No anticoagulation unless in atrial fibrillation greater than 24 hours 3. Wean O2 as tolerated. Encourage incentive spirometry is 10 times every hour while awake. Bronchodilators per pulmonology 4. Increase activity as tolerated. PT/OT/cardiac rehab consulted 5. Will monitor daily labs and x-rays. Electrolyte replacement per protocol. 6. GI/DVT prophylaxis 7. Insulin management per primary care service 8. Pain control with current medication regimen, narcotics discontinued 9. Miralax added yesterday, suppository today if no bowel movement by noon 10. Strict accurate intake and output. Daily weights. Patient to shower daily 11. Discharge planning in progress. Anticipate discharge to home with home care tomorrow morning 12. More recommendations to follow based on patient's progress
[2021-11-22] MEDS: polyethylene glycoL 3350 17 GM POWD.PACK PO SCH (08:33)
[2021-11-22] MEDS: CLOPIDOGREL 75 MG TAB PO SCH (08:34)
[2021-11-22] MEDS: METOPROLOL TARTRATE 25 MG TAB PO SCH ×2 (08:34→20:44)
[2021-11-22] MEDS: ATORVASTATIN 40 MG TAB PO SCH (08:34)
[2021-11-22] MEDS: AMIODARONE 200 MG TAB PO SCH ×2 (08:34→20:44)
[2021-11-22] MEDS: ASPIRIN 325 MG TAB PO SCH (08:34)
[2021-11-22 09:53] LABS: HCT 30.6 % (39.0-53.0); HGB 10.1 gm/dL (13.0-17.5); MCH 30.6 pg (25.0-35.0); MCV 92.6 fL (80.0-100.0); Mean Platelet Volume 7.5; Platelet Count 237 k/uL (150-450); RBC 3.31 m/uL (4.30-5.90); RDW 13.2 % (11.5-15.5)
[2021-11-22 10:06] LABS: African American GFR (CKD) >90 (>60 ml/min/1.73 sqM); Anion Gap 5 mmol/L; Blood Urea Nitrogen 19 mg/dL (9-20); Calcium 8.6 mg/dL (8.4-10.2); Carbon Dioxide 31 mmol/L (22-30); Chloride 101 mmol/L (98-107); Glucose 136 mg/dL (74-99); Magnesium 2.1 mg/dL (1.6-2.3); Non-African American GFR(CKD) >90 (>60 ml/min/1.73 sqM); Potassium 4.9 mmol/L (3.5-5.1); Sodium 137 mmol/L (137-145)
[2021-11-22] MEDS ORDERED: FUROSEMIDE 10 MG/ML 2 ML VIAL IV ONE (10:15)
--- NOTE | 2021-11-22 11:05 | P.PN ---
Subjective Progress Note Date: 11/22/21 Patient is a 66-year-old male with coronary artery disease status post multiple stenting, GERD, HTN, and HLD who presented for elective off-pump CABG 3. Patient denies any acute complaints this morning. He states that he has not had a bowel movement yet. Objective - Vital Signs Vital signs: Vital Signs Temp 98.1 F 11/22/21 08:31 Pulse 74 11/22/21 08:31 Resp 17 11/22/21 08:31 BP 108/66 11/22/21 08:31 Pulse Ox 95 11/22/21 08:31 Intake & Output 11/21/21 11/22/21 11/22/21 18:59 06:59 18:59 Intake Total 360 10 240 Output Total 100 400 425 Balance 260 -390 -185 Intake: IV 10 Invasive Line 5 10 Oral 360 240 Output: Urine 100 400 425 Stool 0 Urine/Stool Mix 0 Other: Voiding Method Urinal Urinal # Voids 0 # Bowel Movements 0 ABP, PAP, CO, CI - Last Documented Arterial Blood Pressure 97/47 Pulmonary Artery Pressure 28/10 Cardiac Output 5.6 Cardiac Index 2.7 - Exam General examination - Alert and Oriented 3 in NAD Heart - + S1S2 no murmurs Lungs - Clear to auscultation, chest brace on. 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 Psych - Calm and cooperative - Labs CBC & Chem 7: 11/22/21 09:27 11/22/21 09:27 Labs: Abnormal Lab Results - Last 24 Hours (Table) 11/21/21 11/21/21 11/22/21 Range/Units 11:41 16:16 06:51 RBC (4.30-5.90) m/uL Hgb (13.0-17.5) gm/dL Hct (39.0-53.0) % Carbon Dioxide (22-30) mmol/L Glucose (74-99) mg/dL POC Glucose (mg/dL) 111 H 110 H 109 H (75-99) mg/dL 11/22/21 11/22/21 Range/Units 09:27 09:27 RBC 3.31 L (4.30-5.90) m/uL Hgb 10.1 L (13.0-17.5) gm/dL Hct 30.6 L (39.0-53.0) % Carbon Dioxide 31 H (22-30) mmol/L Glucose 136 H (74-99) mg/dL POC Glucose (mg/dL) (75-99) mg/dL Assessment and Plan Assessment: Patient is a 66-year-old male status post triple vessel bypass therapy -Management as per primary team -Patient encouraged to use incentive spirometry -Patient is on aspirin and statin and Plavix and beta blockers A. fib with RVR -Patient transition to oral amiodarone -CT surgery managing -Per CT surgery no need for anticoagulation unless more than 24 hours Acute blood loss anemia -Anticipated outcome of surgery -Hemoglobin stable this morning Prediabetes - Outpatient A1C pre op was 6 -Transition patient from insulin drip to sliding scale insulin. -Blood glucose is controlled -At this point patient will not need any diabetic medications on discharge. We'll continue to monitor patient blood glucose while inpatient Hypomagnesemia -Replete as needed Hypertension -Management per primary team Dyslipidemia - Crestor Thank you for allowing us to participate in the care of this pleasant patient. Do not hesitate to contact us with questions. Someone can be reached from the [facility] hospitalist group all hours of the day at [phone] or via [employer].
--- NOTE | 2021-11-22 11:31 | P.PN ---
Subjective Progress Note Date: 11/22/21 Principal diagnosis: Coronary artery disease status post CABG 3, postoperative day #4 The patient is seen today 11/22/2021 in follow-up on the selective care unit. He is currently sitting up in a chair at the bedside. Awake and alert in no acute distress. He is on 1 L/m per nasal cannula oxygen with O2 saturation 95%. He denies any worsening shortness of breath, cough or congestion. Chest x-ray reveals remote lower left thoracotomy tube with small bilateral pleural eff usions. He continues to work well with the incentive spirometer. White count 9.0. Hemoglobin 10.1. Sodium 137. Potassium 4.9. Bicarb 31. BUN 19. Creatinine 0.82. Glucose 136. He is continued on DuoNeb inhalations, heparin for DVT prophylaxis. He's been up with assistance. Plan is for a shower today. Objective - Vital Signs Vital signs: Vital Signs Temp 98.1 F 11/22/21 08:31 Pulse 74 11/22/21 08:31 Resp 17 11/22/21 08:31 BP 108/66 11/22/21 08:31 Pulse Ox 95 11/22/21 08:31 Intake & Output 11/21/21 11/22/21 11/22/21 18:59 06:59 18:59 Intake Total 360 10 240 Output Total 100 400 425 Balance 260 -390 -185 Intake: IV 10 Invasive Line 5 10 Oral 360 240 Output: Urine 100 400 425 Stool 0 Urine/Stool Mix 0 Other: Voiding Method Urinal Urinal # Voids 0 # Bowel Movements 0 ABP, PAP, CO, CI - Last Documented Arterial Blood Pressure 97/47 Pulmonary Artery Pressure 28/10 Cardiac Output 5.6 Cardiac Index 2.7 - Exam GENERAL EXAM: Alert, active, very pleasant 66-year-old male patient, on 1 L nasal cannula, comfortable in no apparent distress. HEAD: Normocephalic. EYES: Normal reaction of pupils, equal size. NOSE: Clear with pink turbinates. THROAT: No erythema or exudates. NECK: No masses, no JVD. CHEST: No chest wall deformity. Chest tube sites clean and dry. Heart hugger in place. LUNGS: Equal air entry with faint crackles in the posterior bases. CVS: S1 and S2 normal with no audible murmur, regular rhythm. ABDOMEN: No hepatosplenomegaly, normal bowel sounds, no guarding or rigidity. SPINE: No scoliosis or deformity SKIN: No rashes CENTRAL NERVOUS SYSTEM: No focal deficits, tone is normal in all 4 extremities. EXTREMITIES: There is no peripheral edema. No clubbing, no cyanosis. Peripheral pulses are intact. - Labs CBC & Chem 7: 11/22/21 09:27 11/22/21 09:27 Labs: Abnormal Lab Results - Last 24 Hours (Table) 11/21/21 11/21/21 11/22/21 Range/Units 11:41 16:16 06:51 RBC (4.30-5.90) m/uL Hgb (13.0-17.5) gm/dL Hct (39.0-53.0) % Carbon Dioxide (22-30) mmol/L Glucose (74-99) mg/dL POC Glucose (mg/dL) 111 H 110 H 109 H (75-99) mg/dL 11/22/21 11/22/21 Range/Units 09:27 09:27 RBC 3.31 L (4.30-5.90) m/uL Hgb 10.1 L (13.0-17.5) gm/dL Hct 30.6 L (39.0-53.0) % Carbon Dioxide 31 H (22-30) mmol/L Glucose 136 H (74-99) mg/dL POC Glucose (mg/dL) (75-99) mg/dL Assessment and Plan Assessment: 1 Coronary artery disease status post off-pump CABG 3, postoperative day #4 2 History of triple-vessel coronary artery disease 3 Benign essential hypertension 4 Peripheral vessel occlusive disease 5 Ex-smoker 6 Postoperative atelectasis, expected 7 Acute blood loss anemia, expected Plan: The patient was seen and evaluated Chest x-ray and labs reviewed Chest tube removed today Titrate off the FiO2 as tolerated Increase his activity as tolerated Increase use of incentive spirometer Possible home in the a.m. We'll continue to follow I have personally seen and examined the patient, performed the documentation and the assessment and plan as written. Number of minutes spent on the visit: 10.
[2021-11-22 11:35] LABS: Glucose,Whole Blood 117 mg/dL (75-99)
[2021-11-22 16:23] LABS: Glucose,Whole Blood 100 mg/dL (75-99)
[2021-11-22 20:31] LABS: Glucose,Whole Blood 109 mg/dL (75-99)
[2021-11-22] MEDS: PRAMIPEXOLE 1 MG TAB PO SCH (20:44)
[2021-11-22] MEDS: SENNOSIDES-DOCUSATE SODIUM 1 EACH TAB PO SCH (20:44)
[2021-11-23] MEDS: HEPARIN SODIUM,PORCINE/PF 5,000 UNIT/0.5 ML SYRINGE SQ SCH ×2 (01:18→08:49)
[2021-11-23] MEDS: INSULIN ASPART (NovoLOG) 100 UNIT/ML VIAL SQ SCH (06:36)
[2021-11-23 06:37] LABS: Glucose,Whole Blood 111 mg/dL (75-99)
[2021-11-23] MEDS: MIDODRINE 5 MG TAB PO SCH (06:42)
[2021-11-23] MEDS: PANTOPRAZOLE 40 MG TABLET PO SCH (06:42)
--- NOTE | 2021-11-23 07:59 | P.PN ---
Subjective Progress Note Date: 11/23/21 Principal diagnosis: Coronary artery disease. Previous medical history of coronary artery disease with unstable angina and previous PCI, hypertension, hyperlipidemia, peripheral arterial disease, previous tobacco dependence, GERD, prediabetes. Patient is vaccinated against covid POD #5 off-pump coronary artery bypass graft 3 with left internal mammary artery to the left anterior descending artery, free right internal mammary artery T graft off the left internal mammary artery to the obtuse marginal #2, reverse greater saphenous vein graft to the posterior descending artery with endovascular vein harvest and ligation of the left atrial appendage with a 35 mm AtriCure clip, intraoperative transesophageal echocardiogram pre-and postoperatively performed by anesthesia Postoperative acute blood loss anemia, expected given hemodilution Paroxysmal atrial fibrillation, known common occurrence after open heart surgery The patient was seen and examined this morning sitting up in a recliner on the cardiac stepdown unit in no acute distress. States pain is controlled, denies shortness of breath. Remains in sinus rhythm with no further episodes of atrial fibrillation. Actively using incentive spirometer and achieving 1250 mL. Patient has ambulated in the hallway without difficulty, received first postoperative shower yesterday. No other new concerns. Objective - Vital Signs Vital signs: Vital Signs Temp 97.9 F 11/23/21 04:00 Pulse 69 11/23/21 04:00 Resp 17 11/23/21 04:00 BP 110/67 11/23/21 04:00 Pulse Ox 92 L 11/23/21 04:00 Intake & Output 11/22/21 11/23/21 11/23/21 18:59 06:59 18:59 Intake Total 598 10 Output Total 1375 525 Balance -777 -515 Weight 83.5 kg Intake: IV 10 Invasive Line 5 10 Oral 598 Output: Urine 1375 525 Other: Voiding Method Urinal Urinal # Voids 1 # Bowel Movements 1 ABP, PAP, CO, CI - Last Documented Arterial Blood Pressure 97/47 Pulmonary Artery Pressure 28/10 Cardiac Output 5.6 Cardiac Index 2.7 - Exam CONSTITUTIONAL: Appears comfortable, cooperative, no acute distress RESPIRATORY: Lungs sounds diminished bilaterally. Respirations even, nonlabored. Currently on room air with oxygen saturation 92%. Able to achieve 1250 mL on incentive spirometry. Strong cough. CARDIOVASCULAR: S1, S2 present. Regular rate and rhythm, sinus rhythm on telemetry. Sternum stable. Palpable peripheral pulses bilaterally. No edema present. No calf pain or tenderness noted. Heart hugger in place with patient demonstrating appropriate use. Antiembolism stockings, SCDs present. GASTROINTESTINAL: Abdomen soft, nontender, nondistended. Active bowel sounds present 4 quadrants. Tolerating diet. Positive bowel movement 2 GENITOURINARY: Continues to void INTEGUMENTARY: Skin is warm and dry with evidence of good perfusion. Anterior chest incision well approximated. Left lower extremity EVH site well approximated without redness or drainage. NEUROLOGIC: Cranial nerves II through XII intact MUSKULOSKELETAL: Able to move all extremities, strength equal bilaterally PSYCHIATRIC: Alert and oriented to person place and time, appropriate affect, intact judgment and insight - Allied health notes Allied health notes reviewed: nursing - Labs CBC & Chem 7: 11/22/21 09:27 11/22/21 09:27 Labs: Abnormal Lab Results - Last 24 Hours (Table) 11/22/21 11/22/21 11/22/21 Range/Units 09:27 09:27 11:33 RBC 3.31 L (4.30-5.90) m/uL Hgb 10.1 L (13.0-17.5) gm/dL Hct 30.6 L (39.0-53.0) % Carbon Dioxide 31 H (22-30) mmol/L Glucose 136 H (74-99) mg/dL POC Glucose (mg/dL) 117 H (75-99) mg/dL 11/22/21 11/22/21 11/23/21 Range/Units 16:20 20:30 06:17 RBC (4.30-5.90) m/uL Hgb (13.0-17.5) gm/dL Hct (39.0-53.0) % Carbon Dioxide (22-30) mmol/L Glucose (74-99) mg/dL POC Glucose (mg/dL) 100 H 109 H 111 H (75-99) mg/dL - Imaging and Cardiology Chest x-ray: image reviewed Assessment and Plan Assessment: 1. Coronary artery disease, unstable angina with previous PCI, status post three-vessel off-pump CABG 2. Hypertension 3. Hyperlipidemia, treated, cholesterol 107, LDL 47 4. Peripheral arterial disease 5. Previous tobacco dependence, preoperative FEV1 98% of predicted 6. GERD 7. Prediabetes, preoperative hemoglobin 6% 8. Vaccinated against covid 9. Postoperative acute blood loss anemia, expected 10. Paroxysmal atrial fibrillation, currently sinus, status post left atrial appendage ligation Plan: 1. Continue aspirin, statin, Plavix, beta irais therapy. Continue midodrine for blood pressure, will discontinue outpatient once his blood pressure tolerates 2. Continue amiodarone for A. fib prophylaxis with tapered dose. No anticoagulation necessary 3. Encourage incentive spirometry is 10 times every hour while awake. Bronchodilators per pulmonology 4. Increase activity as tolerated. PT/OT/cardiac rehab consulted 5. GI/DVT prophylaxis 6. Insulin management per primary care service, recommendations for no antidiabetic's on discharge, follow-up hemoglobin A1c in 3 months 7. Pain control with current medication regimen 9. Strict accurate intake and output. Daily weights. Patient to shower daily 10. Discharge planning in progress. Anticipate discharge to home with home care this morning
[2021-11-23] MEDS: IPRATROPIUM-ALBUTEROL 3 ML NEB INHALATION SCH (08:10)
[2021-11-23 08:14] LABS: HGB 10.7 gm/dL (13.0-17.5); MCH 30.4 pg (25.0-35.0); MCHC 32.5 g/dL (31.0-37.0); MCV 93.6 fL (80.0-100.0); Mean Platelet Volume 7.4; Platelet Count 315 k/uL (150-450); RBC 3.52 m/uL (4.30-5.90); RDW 13.3 % (11.5-15.5); WBC 7.2 k/uL (3.8-10.6)
[2021-11-23 08:29] LABS: African American GFR (CKD) >90 (>60 ml/min/1.73 sqM); Anion Gap 8 mmol/L; Blood Urea Nitrogen 20 mg/dL (9-20); Calcium 8.6 mg/dL (8.4-10.2); Carbon Dioxide 31 mmol/L (22-30); Chloride 99 mmol/L (98-107); Glucose 102 mg/dL (74-99); Non-African American GFR(CKD) >90 (>60 ml/min/1.73 sqM); Potassium 4.2 mmol/L (3.5-5.1); Sodium 138 mmol/L (137-145)
[2021-11-23 08:30] VITALS: BP 105/64; PULSE 68; RESP 16; TEMP 97.4
[2021-11-23] MEDS: ASPIRIN 325 MG TAB PO SCH (08:48)
[2021-11-23] MEDS: CLOPIDOGREL 75 MG TAB PO SCH (08:48)
[2021-11-23] MEDS: ATORVASTATIN 40 MG TAB PO SCH (08:48)
[2021-11-23] MEDS: METOPROLOL TARTRATE 25 MG TAB PO SCH (08:49)
[2021-11-23] MEDS: AMIODARONE 200 MG TAB PO SCH (08:49)
[2021-11-23] MEDS: polyethylene glycoL 3350 17 GM POWD.PACK PO SCH (08:50)
--- NOTE | 2021-11-23 09:28 | XR ---
EXAMINATION TYPE: XR chest 2V DATE OF EXAM: 11/23/2021 COMPARISON: 11/22/2021 INDICATION: Post cardiac surgery TECHNIQUE: Single frontal view of the chest is obtained. FINDINGS: The heart size is normal. The pulmonary vasculature is normal. Small left pleural effusion may be present. Mild bibasilar infiltrates are present which are nonspeci fic. These were present previously. Correlate for atelectasis and IMPRESSION: 1. Small stable bibasilar infiltrates. Correlate for atelectasis. 2. Small left pleural effusion, stable
--- NOTE | 2021-11-23 09:49 | P.DS ---
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 Coronary artery disease, unstable angina with previous PCI 2. Hypertension 3. Hyperlipidemia, treated, cholesterol 107, LDL 47 4. Peripheral arterial disease 5. Previous tobacco dependence, preoperative FEV1 98% of predicted 6. GERD 7. Prediabetes, preoperative hemoglobin A1c 6% 8. Vaccinated against Covid 9. Postoperative acute blood loss anemia, expected 10. Paroxysmal atrial fibrillation, common occurrence after open heart surgery PRINCIPAL PROCEDURE: 1. Off-pump coronary artery bypass graft 3 with left internal mammary artery to the left anterior descending artery, free right internal mammary artery T graft off the left internal mammary artery to the obtuse marginal #2, reverse greater saphenous vein graft to the posterior descending artery 2. Endovascular vein harvest of the left greater saphenous vein 3. Ligation of the left atrial appendage with a 35 mm AtriCure clip 4. Intraoperative transesophageal echocardiogram pre-and post-performed by anesthesia HISTORY OF PRESENT ILLNESS: This is a 66-year-old active gentleman who follows on an outpatient basis with Dr. Charles Laguna for primary care and Dr. Mayo Nuñez for cardiology. He has a known history of coronary artery disease with multiple stents in the past and had been experiencing anginal symptomatology in the form of intermittent chest pain/pressure with exertion. He made an appointment to see Dr. Nuñez and since he had a recent stress test which was normal he was recommended to undergo heart catheterization where he was found to have severe triple-vessel coronary artery disease with in-stent restenosis of the proximal LAD stent. The patient was referred to Dr. Vasquez from cardiothoracic surgery. He was recommended to undergo coronary artery bypass surgery. The usual perioperative course was discussed in detail with the patient and his family, all risks and benefits were explained, all questions were answered, and consent was obtained to proceed with surgery. The patient was scheduled for elective surgery at the earliest possible date. HOSPITAL COURSE: The patient was brought to the hospital on 11/18/21, taken to the preoperative area, prepared in the usual fashion, and subsequently taken to the operating room where Dr. Vasquez performed three-vessel off-pump CABG. Upon completion of surgery the patient was transferred to the cardiovascular intensive care unit where he was recovered and monitored hemodynamically. He was extubated, all lines, tubes, and drips were discontinued when appropriate, and he was transferred to 3 S cardiac stepdown unit for further monitoring and rehabilitation. He did develop short run of atrial fibrillation with good response to amiodarone. His oxygen was titrated down, he continued to work with physical and occupational therapy, he was tolerating oral diet, his pain was controlled, and he was ready to be discharged to home with [facility] care on postoperative day #5. He received written and verbal instruction regarding his medications, activity restrictions, signs and symptoms requiring physician notification, and follow-up appointments. Patient Condition at Discharge: Stable Plan - Discharge Summary Discharge Rx Participant: Yes New Discharge Prescriptions: New Amiodarone [Cordarone] 400 mg PO BID #40 tab Metoprolol Tartrate [Lopressor] 25 mg PO BID #60 tab Midodrine [ProAmatine] 5 mg PO AC-TID #90 tab Pantoprazole [Protonix] 40 mg PO AC-BRKFST #30 tab Sennosides-Docusate Sodium [Senokot-S] 2 each PO HS PRN tab PRN Reason: Constipation Acetaminophen Tab [Tylenol] 650 mg PO Q4HR PRN tab PRN Reason: Fever And/ Or Pain Continue Aspirin 81 mg PO DAILY Ubidecarenone [Co Q-10] 100 mg PO HS Pramipexole Di-HCl [Mirapex] 1 mg PO HS Rosuvastatin Calcium [Crestor] 40 mg PO HS Clopidogrel [Plavix] 75 mg PO DAILY Discontinued atenoloL [Tenormin] 50 mg PO DAILY Omeprazole [PriLOSEC] 20 mg PO AC-BRKFST Isosorbide Mononitrate ER [Imdur] 30 mg PO DAILY Discharge Medication List Aspirin 81 mg PO DAILY 11/12/21 [History] Clopidogrel [Plavix] 75 mg PO DAILY 11/12/21 [History] Pramipexole Di-HCl [Mirapex] 1 mg PO HS 11/12/21 [History] Rosuvastatin Calcium [Crestor] 40 mg PO HS 11/12/21 [History] Ubidecarenone [Co Q-10] 100 mg PO HS 11/12/21 [History] Acetaminophen Tab [Tylenol] 650 mg PO Q4HR PRN tab 11/23/21 [Rx] Amiodarone [Cordarone] 400 mg PO BID #40 tab 11/23/21 [Rx] Metoprolol Tartrate [Lopressor] 25 mg PO BID #60 tab 11/23/21 [Rx] Midodrine [ProAmatine] 5 mg PO AC-TID #90 tab 11/23/21 [Rx] Pantoprazole [Protonix] 40 mg PO AC-BRKFST #30 tab 11/23/21 [Rx] Sennosides-Docusate Sodium [Senokot-S] 2 each PO HS PRN tab 11/23/21 [Rx] Follow up Appointment(s)/Referral(s): Debbie Donaldson MD [STAFF PHYSICIAN] - 12/17/21 1:45 pm Gita Caro NPC [Nurse Practitioner] - 11/28/21 12:15 pm (To be seen in the surgeon's office behind the hospital within [facility], [address] Office phone number is ) [facility] [NON-STAFF] - 4 Weeks [facility] - Karthik Vasquez MD [STAFF PHYSICIAN] - 12/18/21 1:00 pm Charles Laguna MD [Primary Care Provider] - 2 Weeks Mayo Nuñez MD [REFERRING] - 2 Weeks Ambulatory/Diagnostic Orders: Complete Blood Count w/diff [LAB.AMB] Time Frame: 3 Days, Location: None Selected Comprehensive Metabolic Panel [LAB.AMB] Time Frame: 3 Days, Location: None Selected Activity/Diet/Wound Care/Special Instructions: DISCHARGE INSTRUCTIONS: 1. No driving for 4 weeks, or until physician gives their ok. 2. The patient should sleep in their own bed, no medical bed needed. 3. Stairs are not an issue. If the bedroom is upstairs, it is advised that the patient go up at night and down in the morning for the first week. Go slowly, using handrail and take 1 step at a time. 4. HUMBERTO hose are to be worn for 30 days or until physician discontinues. 5. Heart hugger is to be worn 100% of the time until physician discontinues.(except when showering) 6. No lifting, pushing, or pulling more than 10 pounds for 12 weeks. The physician will advise of any restriction changes. 7. The patient is expected to continue the prescribed walking program. 8. Continue pain control per as needed orders. 9. Continue with incentive spirometry and splinting/heart hugger until otherwise directed by the physician. 10. Must shower daily using liquid antibacterial soap and a separate white washcloth for each individual incision. 11. Routine sternal incision care. No powders, lotions, ointments on incisions. No dressings are necessary on incisions unless they are draining. Dermabond tape is to remain on sternal incision until surgeon follow-up. 12. Please call surgeon/MARINE UNDERWRITER for temp greater than 101 F or purulent drainage from incisions. 13. You should weigh yourself daily, record and bring log with you to follow up appointments. 14. All prescriptions given by surgeon for 30 days. Refills need to be filled through blocker automatic/primary care physician. 15. A Red armband has been placed on the patient. It should be worn for 30 days post surgery and will be removed by the cardiac surgeons. If an ER visit is necessary, please make sure the number on the Red armband is called. 16. You have been referred to and are expected to begin Cardiac Rehab in approximately 4-6 weeks. HOME HEALTH SERVICES TO PROVIDE: RN SKILLED HOME CARE SERVICES FOR POST-OP SURGICAL PATIENTS WITH THE FOLLOWING: Coronary Artery Bypass Surgery (CABG), Mitral Valve Replacement/Repair ( MVR), Aortic Valve Replacement/Repair (AVR) RN TO CONTINUE EDUCATION FROM ``ROAD TO A HEALTH HEART PATIENT EDUCATION MANUAL (GIVEN TO PATIENT IN THE HOSPITAL) MEDICATION RECONCILIATION WITH EDUCATION NEEDED ON FIRST HOME VISIT EMPHASIZE IMPORTANCE OF WEARING BREAST SUPPORT/HEART HUGGER ENCOURAGE USE OF INCENTIVE SPIROMETER 10 X EVERY HOUR WHILE AWAKE ENCOURAGE UTILIZATION OF LOWER EXTREMITY COMPRESSION STOCKINGS/HUMBERTO HOSE and ELEVATE LEGS ABOVE LEVEL OF HEART WHILE AT REST. ENCOURAGE AMBULATION 3-5x/day INCREASING TOLERATES, WHILE AVOIDING EXTREMES IN TEMPERATURE FREQUENCY: RN TO OPEN THE PATIENT WITHIN 24 HOURS OF DISCHARGE FROM THE HOSPITAL WITH TELEHEALTH INSTALLED AT [facility] [place], RN TO VISIT 2-3 X A WEEK FOR 4 WEEKS ESTABLISHED BY PATIENT NEEDS. LABORATORY: CBC, CMP TO BE DRAWN ON THE THIRD DAY HOME, (RAN STAT) FAX RESULTS TO [phone]. TELEHEALTH PARAMETERS: WEIGHT: NOTIFY MD OF WEIGHT GAIN OF 2 LBS IN 24 HOURS OR 5 LBS IN ONE WEEK HR: NOTIFY MD OF HR <55 BPM OR HR>100 BPM BP: NOTIFY MD IF BP <90/55 OR BP>140/100 O2 SAT: NOTIFY MD IF PO2<93% ON ROOM AIR SEND TELEHEALTH REPORT TO TIRE MECHANIC AND CARDIOVASCULAR SURGEON THE FIRST WEEK OF CARE AND THEN BI-WEEKLY. PLEASE ADDITIONALLY COMMUNICATE ANY ABNORMALS AND NEW FINDINGS TO THE SURGEONS OFFICE. Discharge Disposition: HOME WITH HOME HEALTH SERVICES
== END 2021-11-23 10:14 | disposition home health service (06) | DRG 236 ==
LOC: 2ORMAIN 05:38 → 2SICU 13:11 → 3SCARD 11-20 16:15
PROVIDERS: ADMIT Thoracic Surgery (Cardiothoracic Vascular Surgery); ATTEND Thoracic Surgery (Cardiothoracic Vascular Surgery)
PROC: 021009W Bypass Coronary Artery, One Artery from Aorta with Autologous Venous Tissue, Open Approach (ICD-10-PCS; 2021-11-18)
PROC: 06BQ4ZZ Excision of Left Saphenous Vein, Percutaneous Endoscopic Approach (ICD-10-PCS; 2021-11-18)
PROC: 02L70CK Occlusion of Left Atrial Appendage with Extraluminal Device, Open Approach (ICD-10-PCS; 2021-11-18)
PROC: B24BZZ4 Ultrasonography of Heart with Aorta, Transesophageal (ICD-10-PCS; 2021-11-18)
PROC: 02100Z9 Bypass Coronary Artery, One Artery from Left Internal Mammary, Open Approach (ICD-10-PCS; principal; 2021-11-18 08:00)
PROC: 02100Z8 Bypass Coronary Artery, One Artery from Right Internal Mammary, Open Approach (ICD-10-PCS; 2021-11-18 08:00)
DX: I25.110 Atherosclerotic heart disease of native coronary artery with unstable angina pectoris (principal); T82.855A Stenosis of coronary artery stent, initial encounter; D62 Acute posthemorrhagic anemia; J98.11 Atelectasis; I10 Essential (primary) hypertension; E78.5 Hyperlipidemia, unspecified; G25.81 Restless legs syndrome; R73.03 Prediabetes; I73.9 Peripheral vascular disease, unspecified; K21.9 Gastro-esophageal reflux disease without esophagitis; Y83.1 Surgical operation with implant of artificial internal device as the cause of abnormal reaction of the patient, or of later complication, without mention of misadventure at the time of the procedure; I48.0 Paroxysmal atrial fibrillation; E83.42 Hypomagnesemia; Z79.82 Long term (current) use of aspirin; Z79.899 Other long term (current) drug therapy; Z87.891 Personal history of nicotine dependence; Z79.02 Long term (current) use of antithrombotics/antiplatelets; Z82.49 Family history of ischemic heart disease and other diseases of the circulatory system; Z95.5 Presence of coronary angioplasty implant and graft
CPT/HCPCS: 71045; 71046; 80048; 80053; 82330; 82728; 82805; 83540; 83550; 83735; 85025; 85027; 85520; 85610; 85730; 86850; 86891; 86900; 86901; 86920; 94002; 94640; 94760